=== PATIENT | female | born 1945 | race Caucasian/White ===

== ENCOUNTER 2022-09-19 10:13 | Inpatient (IN) | payer MEDICARE, MEDICAID, SELFPAY ==
[2022-09-19] VITALS (38 sets, daily range): BP systolic 123–164; BP diastolic 72–95; PULSE 78–116; RESP 16–27; TEMP 36.3–36.5; O2SAT 88–100
--- NOTE | 2022-09-19 10:00 | DI.RAD_ITS ---
Exam(s) XR PORTABLE CHEST AP EXAM: XR PORTABLE CHEST AP CLINICAL HISTORY: Hypoxia, cough TECHNIQUE: 2D digital imaging was performed. COMPARISON: No exams were available for comparison FINDINGS: The exam is extremely limited limited by under penetration and patient body habitus with overlying ab dominal soft tissues. LUNGS: Increased densities seen left hemithorax. Effusion and/or infiltrates suspected. Right lung grossly clear. HEART: Cardiac silhouette obscured by pulmonary densities. AORTA: Normal diameter. BONES: Unremarkable for age. Soft tissues: Unremarkable. IMPRESSION: Limited exam. Left-sided pulmonary opacities could represent pneumonia and/or effusion. Recommend f ollow-up PA and lateral views. DATA REPOSITORY: RADIATION DOSE DELIVERED:
--- NOTE | 2022-09-19 10:15 | RT.EKG_ITS ---
APPROVED REPORT Exam: Resting ECG Reason for Exam: Shortness of breath Patient Location: E HR:92 bpm ECG Measurements Heart Rate 92 AXIS CO 196 P 57 QRSd 90 QRS 1 QT 352 T 3 QTc 436 Conclusion Sinus Rhythm No st elevation
--- NOTE | 2022-09-19 10:25 | W.ED.GENAD ---
Discharge Plan Disposition Patient Disposition: Admit to [facility] Discharge Details Clinical Impression: Pleural effusion, CHF (congestive heart failure), Hypoxia, Pneumonia Admit Date/Time: 09/19/22 13:04 Admit Provider: Donn Barboza Attending Provider: Donn Barboza Primary Care Provider: Unknown,Unknown ED Provider: Maykel Holland Medical Decision Making Patient presenting to the emergency department via EMS for chief complaint of worsening cough and shortness of breath. Patient states on Tuesday she started developing worsening cold symptoms and some shortness of breath. Patient denies any feelings of being feverish and does state multiple people have been ill at her care facility. Patient denies any nasal congestion, sore throat, headache or body aches, denies chest pain just states cough malaise and shortness of breath. Physical exam shows wheezes in the left lung field and rhonchorous breath sounds in the right with decreased lung sounds throughout. HEENT exam cardiac exam and exam otherwise unremarkable. There was a reported low O2 [facility] which was verified here off oxygen patient is around 88% on room air. Patient on 2 L nasal cannula which appropriately brings her oxygen into the mid 90s. We will continue to monitor. Patient is ED afebrile, not hypotensive, not tachypneic or tachycardic at this time. We will plan on performing chest x-ray, labs, blood cultures and EKG. I am concerned about acute pneumonia given worsening cough along with breath sounds that are more focal on the right. Once blood cultures are drawn we will plan on starting antibiotics pending results. Patient is stable at this time with no signs of severe respiratory distress or failure but will continue to monitor. Reviewed CBC which is nondiagnostic shows no severe anemia thrombocytopenia or leukocytosis with shift, CMP does show slightly elevated carbon dioxide, glucose of 140 negative troponin and BNP slightly elevated at 958. Patient is negative for COVID influenza and RSV. Review of chest x-ray shows significant pleural effusion and opacity of the left lung which I feel is why diminished lung sounds are heard. Given patient has history of CHF and cardiomyopathy along with opacity we will treat patient for both pneumonia and diuresis for pulmonary effusion. Given that patient has been on Keflex for urinary tract infection recently will start patient on Levaquin and will give 40 mg Lasix. We will also plan on contacting hospitalist for admission given hypoxia pneumonia and pleural effusion. Given pleural effusion did consider thoracentesis but at this time I feel that patient has higher probability of this being related to her cardiomyopathy and CHF so we will start with diuresis. Discussed case with hospitalist who is in agreement to admit patient and had no further questions or recommendations after our initial discussion. Imaging Data Radiologic Study: Attestation: I personally reviewed and interpreted this imaging study as follows: Imaging: X-Ray Radiologist's impression: Exam(s) PROCEDURE INFORMATION: Exam: XR Chest Exam date and time: 09/19/2022 10:10 AM Age: 76 years old Clinical indication: Other: Hypoxia, cough TECHNIQUE: Imaging protocol: Radiologic exam of the chest. Views: 1 view. COMPARISON: No relevant prior studies available. FINDINGS: Lungs: There is opacity in the left lung base. Right lung is grossly clear. Pleural spaces: Unremarkable. No pleural effusion. No pneumothorax. Heart/Mediastinum: The mediastinum is obscured from view secondary to overlying opacity and positioning. Bones/joints: No acute bony abnormalities. Other findings: Limited examination secondary to patient positioning. IMPRESSION: Left lung base opacity. This may represent consolidation such as pneumonia or atelectasis. A left-sided pleural effusion is also a possibility. Recommend dedicated upright PA and lateral chest radiographs if clinically feasible to further characterize. Lab Data Lab results reviewed: Yes I reviewed the patient's lab results. HPI General Mode of arrival: EMS. Date/Time Provider Initiated Documentation: 09/19/22 10:14. Limitations to Documentation: no limitations. Information obtained by: patient, RN notes reviewed and old records reviewed. History of Present Illness 76 year old F presents to the emergency department with the chief complaint of Worsening cough and shortness of breath, described as moderate, Patient started experiencing this day(s) (3) and it has been constant. No relieving factors improve symptom(s), No exacerbating factors reported . Patient notes cough and shortness of breath; denies chest pain and fever/chills. Related Data Home Medications Medication Instructions Recorded Confirmed acetaminophen 650 mg tablet 650 PO Q6H PRN PRN 09/19/22 aspirin 81 mg chewable tablet 81 mg PO DAILY 09/19/22 09/19/22 calcium carbonate 500 mg oral wafer 500 mg PO Q4-5H PRN 09/19/22 09/19/22 carboxymethylcellulose sodium 1 drp ophthalmic (eye) BID PRN 09/19/22 09/19/22 carvedilol 12.5 mg tablet 12.5 mg PO BID 09/19/22 09/19/22 cyclobenzaprine 5 mg tablet 5 mg PO Q8H PRN PRN Muscle Spasm 09/19/22 09/19/22 enoxaparin 40 mg/0.4 mL 40 mg subcut DAILY 09/19/22 09/19/22 subcutaneous syringe fentanyl 12 mcg/hr transdermal 12 mcg topical Q OTHER DAY 09/19/22 09/19/22 patch furosemide 20 mg tablet 20 mg PO DAILY 09/19/22 09/19/22 ipratropium 0.5 mg-albuterol 3 mg 3 ml inhalation QID PRN 09/19/22 09/19/22 (2.5 mg base)/3 mL nebulization soln irbesartan 150 mg tablet 150 mg PO DAILY 09/19/22 09/19/22 lidocaine 5 % topical patch 1 patch topical DAILY 09/19/22 09/19/22 magnesium hydroxide 400 mg/5 mL 30 ml PO DAILY PRN Constipation 09/19/22 09/19/22 oral suspension meclizine 12.5 mg tablet 12.5 mg PO TID PRN 09/19/22 09/19/22 polyethylene glycol 3350 17 17 g PO DAILY PRN PRN 09/19/22 09/19/22 gram/dose oral powder (Miralax) ramelteon 8 mg tablet 8 mg PO QHS PRN 09/19/22 09/19/22 triamcinolone acetonide 0.1 % 1 applic topical BID PRN 09/19/22 09/19/22 topical cream Allergies Allergy/AdvReac Type Severity Reaction Status Date / Time atorvastatin [From Lipitor] Allergy Unverified 09/19/22 13:43 Penicillins Allergy Unverified 09/19/22 13:43 sean hips Allergy Unverified 09/19/22 13:43 gabapentin [From Neurontin] AdvReac Unverified 09/19/22 13:43 ibuprofen AdvReac Unverified 09/19/22 13:43 lovastatin AdvReac Unverified 09/19/22 13:43 metoclopramide [From Reglan] AdvReac Unverified 09/19/22 13:43 General Stated Complaint: SOB IFEANYI: 3 Review of Systems Constitutional Constitutional: Denies chills, Denies fever(s), Reports lethargy, Reports malaise and Reports poor appetite ENT Ears, Nose, Mouth, and Throat: Denies nasal congestion, Denies nasal discharge, Denies odynophagia and Denies sore throat Cardiovascular Cardiovascular: Denies chest pain, Reports dyspnea and Reports dyspnea on exertion Respiratory Respiratory: Reports chest congestion, Reports cough, Reports dyspnea and Reports dyspnea on exertion Gastrointestinal Gastrointestinal: Denies nausea, Denies odynophagia and Denies vomiting Integumentary/Breasts Skin/Breast: Denies rash PFSH All Active Problems (Updated 09/19/22 @ 13:39 by Maykel Holland NP) Pleural effusion (Acute) Hypoxia (Acute) Pneumonia (Acute) Chronic venous hypertension (Acute) Coronary artery disease without angina pectoris (Acute) Hyperlipidemia (Acute) First degree AV block (Acute) GERD (gastroesophageal reflux disease) (Chronic) Cardiomyopathy (Acute) Chronic pain (Chronic) Muscular dystrophy (Acute) Hypertension (Chronic) CHF (congestive heart failure) (Chronic) Social History Smoking/Tobacco Use Status: Never Smoking risk assessment performed?: Yes Alcohol Intake: former Drug use: Never Substance use type: does not use Do you feel safe at home: Yes Do you feel safe in your relationship?: Yes Exam Const General: cooperative and comfortable Orientation: alert and awake [facility] Head: normal to inspection, normocephalic and atraumatic Ears: hearing grossly normal bilaterally and TM's normal bilaterally General nose exam: external nose normal Face and sinus: no erythema Mouth: oral mucosae normal, no drooling, no muffled voice and no trismus Throat: posterior oropharynx normal Neck Neck: normal visual inspection, full ROM, no lymphadenopathy, no meningeal signs, trachea midline and supple Resp Effort & Inspection: normal respiratory effort and able to speak in complete sentences Auscultation: diminished lung sounds on the left throughout, rhonchi right upper and right lower and wheezes expiratory wheezes, left lower and left upper Cardio Rate: regular rate Rhythm: regular rhythm Heart Sounds: S1 normal, S2 normal, normal S1 and S2, no click, no gallops, no murmurs and no rubs Skin General skin exam: no rashes or lesions noted and dry skin (warm) Neuro General: patient alert, patient awake, patient oriented x3, gait normal and moves all extremities Cognition: normal cognition Speech: speech normal Course Vital Signs Vital signs: Vital Signs Temperature 36.5 C 09/19/22 10:13 Pulse 97 H 09/19/22 10:13 Respiratory Rate 20 09/19/22 10:13 Blood Pressure 150/88 H 09/19/22 10:13 Pulse Oximetry 99 09/19/22 10:13 Temperature 36.5 C 09/19/22 10:13 Temperature Source Oral 09/19/22 10:13 Pulse 97 H 09/19/22 10:13 Respiratory Rate 20 09/19/22 10:13 Blood Pressure 150/88 H 09/19/22 10:13 Blood Pressure Position Sitting 09/19/22 10:13 Pulse Oximetry 99 09/19/22 10:13 Oxygen Delivery Method Nasal Cannula 09/19/22 10:13 Oxygen Flow Rate 6 09/19/22 10:13 Lab/Test Results Lab/Test Results: 09/19/22 10:14 Blood Blood Culture - Pending 09/19/22 10:14 Blood Blood Culture - Pending
--- NOTE | 2022-09-19 10:50 | DI.VRAD_ITS ---
PROCEDURE INFORMATION: Exam: XR Chest Exam date and time: 09/19/2022 10:10 AM Age: 76 years old Clinical indication: Other: Hypoxia, cough TECHNIQUE: Imaging protocol: Radiologic exam of the chest. Views: 1 view. COMPARISON: No relevant prior studies available. FINDINGS: Lungs: There is opacity in the left lung base. Right lung is grossly clear. Pleural spaces: Unremarkable. No pleural effusion. No pneumothorax. Heart/Mediastinum: The mediastinum is obscured from view secondary to overlying opacity and positioning. Bones/joints: No acute bony abnormalities. Other findings: Limited examination secondary to patient positioning. IMPRESSION: Left lung base opacity. This may represent consolidation such as pneumonia or atelectasis. A left-sided pleural effusion is also a possibility. Recommend dedicated upright PA and lateral chest radiographs if clinically feasible to further characterize. Dictated and Authenticated by: Maykel Becker MD. Ordering:ERMELINDA Brar MD
[2022-09-19 11:00] LABS: Lactate 0.9 mmol/L (0.6-1.4)
[2022-09-19 11:02] LABS: Abs Immature Grans 0.04 10^3/uL (0.0-0.06); Absolute Basophil Count 0.05 10^3/uL (0.0-0.2); Absolute Eosinophil Count 0.03 10^3/uL (0.0-0.7); Absolute Lymphocyte Count 1.23 10^3/uL (1.2-3.4); Absolute Monocyte Count 1.27 10^3/uL (0.1-0.8); Absolute Neutrophil Count 4.95 10^3/uL (1.2-6.7); Basophils % 0.7; Eosinophils % 0.4; HCT 43.9 % (36.0-46.0); Immature Grans % 0.5; Lymphocytes % 16.2; MCH 31.3 pg (27.0-33.0); MCHC 31.9 % (32.0-36.0); MCV 98 fL (80-95); MPV 9.9 fL (8.0-11.0); Monocytes % 16.8; Neutrophils % 65.4; Platelet Count 291 10^3/uL (130-400); RBC 4.48 10^6/uL (3.93-5.22); RDW 13.4 % (11.7-14.6); RDW-SD 48.6 fL; WBC 7.57 10^3/uL (4.4-10.8)
[2022-09-19] MEDS: Albuterol/Ipratropium 3 ML UPD VIAL UPD (11:18)
[2022-09-19 11:22] LABS: ALT 21 U/L (14-59); AST 16 U/L (15-37); Albumin 2.8 g/dL (3.4-5.0); Alkaline Phosphatase 106 U/L (46-116); Anion Gap 5.7 mmol/L (3-11); BUN 12 mg/dL (7-18); Bilirubin, Total 0.8 mg/dL (0.2-1.0); CO2 33.3 mmol/L (21.0-32.0); CREATININE 0.5 mg/dL (0.55-1.02); Calcium 8.7 mg/dL (8.5-10.1); Chloride 97 mmol/L (98-107); Estimated GFR 96.54 (mL/min/1.73m2); Glucose 140 mg/dL (74-106); Potassium 3.7 mmol/L (3.5-5.1); Sodium 136 mmol/L (136-145); Total Protein 7.2 g/dL (6.4-8.2); Troponin I < 50 ng/L (<or=60)
[2022-09-19 11:41] LABS: COVID-19 PCR Negative (Negative); Influenza A PCR Negative (Negative); Influenza B PCR Negative (Negative); RSV PCR Negative (Negative)
[2022-09-19 11:45] LABS: Source Nasopharynx
[2022-09-19 12:02] LABS: NT-proBNP 958 pg/mL (<300)
[2022-09-19] MEDS: levoFLOXacin 750 MG/150 ML BAG 100 MG IVPB (12:22)
[2022-09-19] MEDS: Furosemide 40 MG/4 ML VIAL IVP (12:22)
--- NOTE | 2022-09-19 15:43 | W.PM.HP.N ---
Date of service: 09/19/22 Time of Service: 15:44 Assessment and Plan Assessment and plan (1) Pleural effusion: Status: Acute Assessment and plan: Pulmonary consult; oxygen; consider CHF; abx; furosemide Left sided white out (2) Hypoxia: Status: Acute Assessment and plan: Oxygen, treat pneumonia v CHF antibiotics and furosemide (3) Pneumonia: Status: Acute Assessment and plan: Antibiotics IV, BC pending, Acapella, IS Pulmonology consult (4) First degree AV block: Status: Chronic Assessment and plan: Chronic, stable - on telemetry (5) Cardiomyopathy: Status: Acute Assessment and plan: Echo, telemetry, monitor for CHF (6) Muscular dystrophy: Status: Chronic Assessment and plan: Continue current treatment Fentanyl patch 12 mcg every 48h Cyclobenzaprine 5 mg q8h prn (7) Hypertension: Status: Chronic Assessment and plan: Continue carvedilol and irbesartan (8) CHF (congestive heart failure): Status: Chronic Assessment and plan: Chronic - home dose of furosemide 20 mg daily; increase to 40 mg and monitor output, lung sounds, edema - titrate as necessary (9) DVT prophylaxis: Status: Acute Assessment and plan: Enoxaparin 40 mg sc q24h (10) Discharge planning issues: Status: Acute Assessment and plan: Return to [facility] when stable History of Present Illness History of Present Illness Chief Complaint: Shortness of breath Narrative: This is a 76 year old female patient who presented to the [facility] emergency department, [facility] [place] [facility], via [place] for chief complaint of worsening cough and shortness of breath.? Patient stated on Tuesday09/17/22, she started developing worsening cold symptoms and some shortness of breath.? Patient denied any feelings of being feverish, there have been multiple people ill at her care facility.? Patient denied any nasal congestion, sore throat, headache or body aches, denied chest pain, only complaint was cough, malaise and shortness of breath.?There was a reported low O2 at [facility] which was verified here off oxygen patient was around 88% on room air.? Patient on 2 L nasal cannula which appropriately brought her oxygen into the mid 90s.?In ED afebrile, not hypotensive, not tachypneic or tachycardic .?CBC in ED was nondiagnostic showed no severe anemia thrombocytopenia or leukocytosis with shift, CMP slightly elevated carbon dioxide, glucose of 140 negative troponin and BNP slightly elevated at 958.? Patient is negative for COVID influenza and RSV.? Review of chest x-ray showed significant pleural effusion and opacity of the left lung which I feel is why diminished lung sounds are heard.? Given patient has history of CHF and cardiomyopathy along with opacity we will treat patient for both pneumonia and diuresis for pulmonary effusion.? Given that patient has been on Keflex for urinary tract infection recently Levaquin was started and 40 mg Lasix IV was given.? Given pleural effusion did consider thoracentesis but at this time patient has higher probability of this being related to her cardiomyopathy and CHF so we will start with diuresis. Patient was admitted to the medical floor for IV antibiotics and diuresis. Discussed with Dr Barboza Review of Systems All systems reviewed & are unremarkable except as noted in HPI and below PFSH All Active Problems (Updated 09/19/22 @ 20:54 by Kelsey Barron NP) DVT prophylaxis (Acute) Discharge planning issues (Acute) Pleural effusion (Acute) Hypoxia (Acute) Pneumonia (Acute) Chronic venous hypertension (Acute) Coronary artery disease without angina pectoris (Acute) Hyperlipidemia (Acute) First degree AV block (Chronic) GERD (gastroesophageal reflux disease) (Chronic) Cardiomyopathy (Acute) Chronic pain (Chronic) Muscular dystrophy (Chronic) Hypertension (Chronic) CHF (congestive heart failure) (Chronic) Social History Smoking/Tobacco Use Status: Never Smoking risk assessment performed?: Yes Alcohol Intake: former Drug use: Never Substance use type: does not use Do you feel safe at home: Yes Do you feel safe in your relationship?: Yes Meds Allergies and Home Medications Allergies Allergy/AdvReac Type Severity Reaction Status Date / Time atorvastatin [From Lipitor] Allergy Unverified 09/19/22 13:43 Penicillins Allergy Unverified 09/19/22 13:43 sean hips Allergy Unverified 09/19/22 13:43 gabapentin [From Neurontin] AdvReac Unverified 09/19/22 13:43 ibuprofen AdvReac Unverified 09/19/22 13:43 lovastatin AdvReac Unverified 09/19/22 13:43 metoclopramide [From Reglan] AdvReac Unverified 09/19/22 13:43 Home Medications Medication Instructions Recorded Confirmed Type acetaminophen 650 mg tablet 650 PO Q6H PRN PRN 09/19/22 History aspirin 81 mg chewable tablet 81 mg PO DAILY 09/19/22 09/19/22 History calcium carbonate 500 mg oral wafer 500 mg PO Q4-5H PRN 09/19/22 09/19/22 History carboxymethylcellulose sodium 1 drp ophthalmic (eye) BID PRN 09/19/22 09/19/22 History carvedilol 12.5 mg tablet 12.5 mg PO BID 09/19/22 09/19/22 History cyclobenzaprine 5 mg tablet 5 mg PO Q8H PRN PRN Muscle Spasm 09/19/22 09/19/22 History enoxaparin 40 mg/0.4 mL 40 mg subcut DAILY 09/19/22 09/19/22 History subcutaneous syringe fentanyl 12 mcg/hr transdermal 12 mcg topical Q OTHER DAY 09/19/22 09/19/22 History patch furosemide 20 mg tablet 20 mg PO DAILY 09/19/22 09/19/22 History ipratropium 0.5 mg-albuterol 3 mg 3 ml inhalation QID PRN 09/19/22 09/19/22 History (2.5 mg base)/3 mL nebulization soln irbesartan 150 mg tablet 150 mg PO DAILY 09/19/22 09/19/22 History lidocaine 5 % topical patch 1 patch topical DAILY 09/19/22 09/19/22 History magnesium hydroxide 400 mg/5 mL 30 ml PO DAILY PRN Constipation 09/19/22 09/19/22 History oral suspension meclizine 12.5 mg tablet 12.5 mg PO TID PRN 09/19/22 09/19/22 History polyethylene glycol 3350 17 17 g PO DAILY PRN PRN 09/19/22 09/19/22 History gram/dose oral powder (Miralax) ramelteon 8 mg tablet 8 mg PO QHS PRN 09/19/22 09/19/22 History triamcinolone acetonide 0.1 % 1 applic topical BID PRN 09/19/22 09/19/22 History topical cream Exam Const General: cooperative and comfortable Orientation: alert and awake [facility] Head: normal to inspection, normocephalic and atraumatic Ears: hearing grossly normal bilaterally and TM's normal bilaterally General nose exam: external nose normal Face and sinus: no erythema Mouth: oral mucosae normal, no drooling, no muffled voice and no trismus Throat: posterior oropharynx normal Neck Neck: normal visual inspection, full ROM, no lymphadenopathy, no meningeal signs, trachea midline and supple Resp Effort & Inspection: normal respiratory effort and able to speak in complete sentences Auscultation: diminished lung sounds on the left throughout, rhonchi right upper and right lower and wheezes expiratory wheezes, left lower and left upper Cardio Rate: regular rate Rhythm: regular rhythm Heart Sounds: S1 normal, S2 normal, normal S1 and S2, no click, no gallops, no murmurs and no rubs Skin General skin exam: no rashes or lesions noted and dry skin (warm) Neuro General: patient alert, patient awake, patient oriented x3, gait normal and moves all extremities Cognition: normal cognition Speech: speech normal Results Labs 09/19/22 10:50 09/19/22 10:50 Labs: Laboratory Results - last 24 hr 09/19/22 09/19/22 09/19/22 10:50 10:50 10:50 WBC 7.57 RBC 4.48 Hgb 14.0 Hct 43.9 MCV 98 H MCH 31.3 MCHC 31.9 L RDW 13.4 Plt Count 291 MPV 9.9 Immature Gran % 0.5 Neutrophils % 65.4 Lymphocytes % 16.2 Monocytes % 16.8 Eosinophils % 0.4 Basophils % 0.7 Nucleated RBC % 0.0 Absolute Neutrophils 4.95 Absolute Lymphocytes 1.23 Absolute Monocytes 1.27 H Absolute Eosinophils 0.03 Absolute Basophils 0.05 VBG Lactate 0.9 Sodium 136 Potassium 3.7 Chloride 97 L Carbon Dioxide 33.3 H Anion Gap 5.7 BUN 12 Creatinine 0.5 L Est GFR (CKD-EPI 2020) 96.54 Glucose 140 H Calcium 8.7 Total Bilirubin 0.8 AST 16 ALT 21 Alkaline Phosphatase 106 Troponin I < 50 NT-Pro-B Natriuret Pep Total Protein 7.2 Albumin 2.8 L COVID-19 Source SARS-CoV-2 (PCR) Influenza Type A (PCR) Influenza Type B (PCR) RSV (PCR) 09/19/22 09/19/22 09/19/22 10:50 10:50 10:55 WBC RBC Hgb Hct MCV MCH MCHC RDW Plt Count MPV Immature Gran % Neutrophils % Lymphocytes % Monocytes % Eosinophils % Basophils % Nucleated RBC % Absolute Neutrophils Absolute Lymphocytes Absolute Monocytes Absolute Eosinophils Absolute Basophils VBG Lactate Sodium Potassium Chloride Carbon Dioxide Anion Gap BUN Creatinine Est GFR (CKD-EPI 2020) Glucose Calcium Total Bilirubin AST ALT Alkaline Phosphatase Troponin I Cancelled NT-Pro-B Natriuret Pep 958 H Total Protein Albumin COVID-19 Source Nasopharynx SARS-CoV-2 (PCR) Negative Influenza Type A (PCR) Negative Influenza Type B (PCR) Negative RSV (PCR) Negative Last Vital Signs Temp 36.3 C L 09/19/22 14:28 Pulse 97 H 09/19/22 14:28 Resp 18 09/19/22 14:28 BP 150/81 H 09/19/22 14:28 Pulse Ox 95 09/19/22 14:28 Time Spent Time spent with Patient: 40-54 minutes Time was spent: preparing to see the patient(eg.review tests), obtaining and/or reviewing separately otained hiistory, ordering medications,tests, procedures, referring, communicating with other health primary care coordinator, indepentently interpreting results, counseling the patient and care coordination
[2022-09-19] MEDS: fentaNYL 12 MCG PATCH TD (17:12)
[2022-09-19] MEDS: Normal Saline Flush 10 ML SYR IVP (20:58)
[2022-09-19] MEDS: Refresh PLUS Eye Drops 0.4ml 1 EACH OP (20:59)
[2022-09-19] MEDS: Carvedilol 12.5 MG TAB PO (20:59)
[2022-09-20] VITALS (20 sets, daily range): BP systolic 120–144; BP diastolic 68–88; PULSE 58–83; RESP 4–24; TEMP 35.9–37; O2SAT 76–98
--- NOTE | 2022-09-20 | DI.RAD_ITS ---
Exam(s) XR CHEST 2V PA LATERAL EXAM: XR CHEST 2V PA LATERAL CLINICAL HISTORY: LLL pneumonia TECHNIQUE: 2D digital imaging was performed. COMPARISON: CR,XR XR PORTABLE CHEST AP from 09/19/2022 FINDINGS: Exam is limited by patient body habitus. HEART: Grossly enlarged. Aorta: Not dilated. PULMONARY VASCULATURE: Normal. LUNGS: Consolidation left lower lobe. Mildly increased densities right lower lobe could represent at electasis. PLEURAL SPACE: No pneumothorax. Are question tiny bilateral pleural effusions. BONE:Unremarkable for age. IMPRESSION: Limited exam. Left lower lobe consolidation. DATA REPOSITORY: RADIATION DOSE DELIVERED:
--- NOTE | 2022-09-20 07:07 | PUCON_ITS ---
General Date Of Service Date of service: 09/20/22 Time of Service: 07:07 Reason for Consult: Pleural effusion Assessment and Plan Assessment and plan (1) CHF (congestive heart failure): Status: Chronic (2) Pneumonia: Status: Acute (3) Hypoxia: Status: Acute Assessment and plan: This is a 76 yo admitted for dyspnea and hypoxia. I suspect her symptoms are related to CHF. There is no pleural effusion present and based on my POCUS, I suspect her to have atelectasis, however I cannot comfortably rule out pneumonia. She likely does not need as broad of an antibiotic of Levaquin, and would do fine with just a Z-pack or doxycycline. I think she would benefit from diuresis and agree with getting a formal echo. She is already ordered for Acapella and IS, which would help with any atelectasis. To further assess the LLL, you could consider a CXR PA and Lateral. Dyspnea - likely related to volume overload - left pleural effusion on POCUS - agree with echo today Possible pnuemonia - consider stewardship of antibiotics to a Z-pack or doxycycline - consider CXR PA/Lat to better assess LLL Atelectasis - agree with IS and Acapella History of Present Illness Narrative: This is a 76 yo admitted for dyspnea and cough. She states that on Joe her symptoms started developing. She does endorse a productive cough but states it was clear and frothy - not phlegm like. She does not think she has been diagnosed with heart issues in the past. On a CXR in the ED. there is a pulmonary edema pattern and her left hemidiaphragm is obstructed with a concern for a possible infiltrate and/or pleural effusion. He bnp is elevated and she has noticed progressive swelling on her legs. She still feels short of breath and still has a bit of a cough, although he cough is very weak. She is tired. Review of Systems All systems reviewed & are unremarkable except as noted in HPI and below PFSH All Active Problems (Updated 09/20/22 @ 10:44 by Nancy Lala MD) DVT prophylaxis (Acute) Discharge planning issues (Acute) Hypoxia (Acute) Pneumonia (Acute) Chronic venous hypertension (Acute) Coronary artery disease without angina pectoris (Acute) Hyperlipidemia (Acute) First degree AV block (Chronic) GERD (gastroesophageal reflux disease) (Chronic) Cardiomyopathy (Acute) Chronic pain (Chronic) Muscular dystrophy (Chronic) Hypertension (Chronic) CHF (congestive heart failure) (Chronic) Social History Smoking/Tobacco Use Status: Never Smoking risk assessment performed?: Yes Alcohol Intake: former Drug use: Never Substance use type: does not use Do you feel safe at home: Yes Do you feel safe in your relationship?: Yes Visit Medication and Allergies Active Medications Generic Name Dose Route Start Last Admin Trade Name Freq PRN Reason Stop Dose Admin Acetaminophen 650 mg 09/20/22 03:57 Acetaminophen 325 Mg Tab PO Q6H PRN PRN Albuterol/Ipratropium 3 ml 09/19/22 16:16 Albuterol/Ipratropium 3 Ml Upd Vial IH QID PRN PRN Aspirin 81 mg 09/20/22 08:30 Aspirin 81 Mg Chew PO DAILY LINDSAY Calcium Carbonate 500 mg 09/19/22 14:33 Calcium Carbonate *Tums* 500 Mg Chew PO Q4H PRN PRN Carboxymethylcellulose Sodium 1 each 09/19/22 20:00 09/19/22 20:59 Refresh Plus Eye Drops 0.4ml OP 1 drp BID LINDSAY Administration Carvedilol 12.5 mg 09/19/22 20:00 09/19/22 20:59 Carvedilol 12.5 Mg Tab PO 12.5 mg BID LINDSAY Administration Cyclobenzaprine HCl 5 mg 09/19/22 15:07 Cyclobenzaprine 10 Mg Tab PO Q8H PRN PRN Muscle Spasm Dimethicone/Zinc Oxide 0 gm 09/19/22 13:04 Eveline Protect Cream 142 Gm Tube TP PRN PRN Enoxaparin Sodium 40 mg 09/20/22 08:30 Enoxaparin 40 Mg/0.4 Ml Syr SC DAILY [facility] Fentanyl 12 mcg 09/19/22 17:00 09/19/22 17:12 Fentanyl 12 Mcg Patch TD 12 mcg Q48H LINDSAY Administration Furosemide 40 mg 09/20/22 08:30 Furosemide 20 Mg Tab PO DAILY [facility] Levofloxacin 750 mg in 150 mls @ 100 mls/hr 09/20/22 12:00 Levaquin Premixed Bag IVPB Q24H [facility] Protocol IV Miscellaneous Supplies 1 each 09/19/22 10:15 Iv Access IV DIRECTED [facility] Irbesartan 150 mg 09/20/22 08:30 Irbesartan 75 Mg Tab PO DAILY [facility] Lidocaine 1 patch 09/20/22 08:30 Lidocaine 5% Patch TP DAILY [facility] Magnesium Hydroxide 30 ml 09/19/22 16:16 Milk Of Magnesia 30 Ml Cup PO DAILY PRN PRN Constipation Meclizine HCl 12.5 mg 09/19/22 16:16 Meclizine 12.5 Mg Tab PO TID PRN PRN Non-Formulary Medication 8 mg 09/19/22 16:16 Ramelteon PO QHS PRN Polyethylene Glycol 17 gm 09/19/22 16:28 Polyethylene Glycol 3350 17 Gm Packet PO DAILY PRN PRN Sodium Chloride 0 ml 09/19/22 10:14 09/19/22 20:58 Normal Saline Flush 10 Ml Syr IVP 10 ml PRN PRN Administration Allergies atorvastatin [From Lipitor] Allergy (Unverified 09/19/22 13:43) Penicillins Allergy (Unverified 09/19/22 13:43) sean hips Allergy (Unverified 09/19/22 13:43) gabapentin [From Neurontin] Adverse Reaction (Unverified 09/19/22 13:43) ibuprofen Adverse Reaction (Unverified 09/19/22 13:43) lovastatin Adverse Reaction (Unverified 09/19/22 13:43) metoclopramide [From Reglan] Adverse Reaction (Unverified 09/19/22 13:43) Exam Narrative Exam Narrative: POCUS 09/20/22: All views obtained, but suboptimal. No pleural effusion on the left. B-lines present. Likely LLL atelectasis. No clear hepatization. LVEF likely normal. IVC is 2.5cm and non collapsable with inspiration or cough. Gen: NAD, normal respiratory effort, obese HENT: PERRL Chest: No respiratory distress, normal appearance of chest, clear to auscultation bilaterally, no crackles or wheezes, normal inspiratory effort Heart: regular rate and rhythym, no murmurs, rubs or gallops Abdomen: Non-distended, soft, non tender Extremities: No clubbing, 3+ edema of legs, no cyanosis, no rashes Neuro: AAOx3 , non focal Psych: cooperative, appropriate mental affect Results Last Vital Signs Temp 36.6 C 09/20/22 06:26 Pulse 81 09/20/22 06:26 Resp 18 09/20/22 06:26 BP 121/74 09/20/22 06:26 Pulse Ox 96 09/20/22 06:26 Labs 09/19/22 10:50 09/19/22 10:50 Labs: Laboratory Results - last 24 hr 09/19/22 09/19/22 09/19/22 10:50 10:50 10:50 WBC 7.57 RBC 4.48 Hgb 14.0 Hct 43.9 MCV 98 H MCH 31.3 MCHC 31.9 L RDW 13.4 Plt Count 291 MPV 9.9 Immature Gran % 0.5 Neutrophils % 65.4 Lymphocytes % 16.2 Monocytes % 16.8 Eosinophils % 0.4 Basophils % 0.7 Nucleated RBC % 0.0 Absolute Neutrophils 4.95 Absolute Lymphocytes 1.23 Absolute Monocytes 1.27 H Absolute Eosinophils 0.03 Absolute Basophils 0.05 VBG Lactate 0.9 Sodium 136 Potassium 3.7 Chloride 97 L Carbon Dioxide 33.3 H Anion Gap 5.7 BUN 12 Creatinine 0.5 L Est GFR (CKD-EPI 2020) 96.54 Glucose 140 H Calcium 8.7 Total Bilirubin 0.8 AST 16 ALT 21 Alkaline Phosphatase 106 Troponin I < 50 NT-Pro-B Natriuret Pep Total Protein 7.2 Albumin 2.8 L COVID-19 Source SARS-CoV-2 (PCR) Influenza Type A (PCR) Influenza Type B (PCR) RSV (PCR) 09/19/22 09/19/22 09/19/22 10:50 10:50 10:55 WBC RBC Hgb Hct MCV MCH MCHC RDW Plt Count MPV Immature Gran % Neutrophils % Lymphocytes % Monocytes % Eosinophils % Basophils % Nucleated RBC % Absolute Neutrophils Absolute Lymphocytes Absolute Monocytes Absolute Eosinophils Absolute Basophils VBG Lactate Sodium Potassium Chloride Carbon Dioxide Anion Gap BUN Creatinine Est GFR (CKD-EPI 2020) Glucose Calcium Total Bilirubin AST ALT Alkaline Phosphatase Troponin I Cancelled NT-Pro-B Natriuret Pep 958 H Total Protein Albumin COVID-19 Source Nasopharynx SARS-CoV-2 (PCR) Negative Influenza Type A (PCR) Negative Influenza Type B (PCR) Negative RSV (PCR) Negative
[2022-09-20 07:24] LABS: Abs Immature Grans 0.02 10^3/uL (0.0-0.06); Absolute Basophil Count 0.03 10^3/uL (0.0-0.2); Absolute Eosinophil Count 0.02 10^3/uL (0.0-0.7); Absolute Lymphocyte Count 1.97 10^3/uL (1.2-3.4); Absolute Monocyte Count 1.29 10^3/uL (0.1-0.8); Absolute Neutrophil Count 3.63 10^3/uL (1.2-6.7); Basophils % 0.4; Eosinophils % 0.3; HCT 40.9 % (36.0-46.0); HGB 12.8 g/dL (11.2-15.7); Immature Grans % 0.3; Lymphocytes % 28.3; MCH 30.5 pg (27.0-33.0); MCHC 31.3 % (32.0-36.0); MCV 97 fL (80-95); MPV 10.1 fL (8.0-11.0); Monocytes % 18.5; Neutrophils % 52.2; Platelet Count 285 10^3/uL (130-400); RDW 13.2 % (11.7-14.6); RDW-SD 47.8 fL; WBC 6.96 10^3/uL (4.4-10.8)
[2022-09-20 07:37] LABS: BUN 13 mg/dL (7-18); CREATININE 0.4 mg/dL (0.55-1.02); Chloride 95 mmol/L (98-107); Estimated GFR 101.87 (mL/min/1.73m2); Glucose 85 mg/dL (74-106); Magnesium 1.8 mg/dL (1.8-2.4); Potassium 3.3 mmol/L (3.5-5.1); Sodium 135 mmol/L (136-145)
[2022-09-20 07:41] LABS: Calcium 8.7 mg/dL (8.5-10.1)
--- NOTE | 2022-09-20 08:00 | DI.US_ITS ---
APPROVED REPORT EXAM: Comprehensive 2D, Doppler, and color-flow Echocardiogram Patient Location: In-Patient Room/Bed: 229 Health Care Recruiter: Yadira Crooks RDCS (AE) Indications: Cardiomyopathy, CHF Other Information Study Quality: Poor. Technically limited study due to body habitus, inability to position patient exa m done bedside supine. Conclusion Technically difficult and suboptimal study Left ventricle appears grossly normal in size, wall thickness and systolic function. EF is 55% Left atrium is mildly dilated Right atrium and right ventricle are not well visualized Within the limits of the study, no structural or hemodynamically significant valvular disease is iden tified Wall motion Left Ventricle The left ventricle is normal size. The overall left ventricular systolic function appears normal. The re is normal left ventricular wall thickness. There is normal LV segmental wall motion. LVEF is 55%. Right Ventricle Right ventricle is not well visualized. Right ventricular systolic function could not be assessed. Atria The left atrium size is mildly dilated Right atrium is not well visualized. Aortic Valve The aortic valve is grossly normal in structure. Number of aortic valve leaflets could not be assesse d. There is no aortic valvular stenosis. Mitral Valve The mitral valve is normal in structure. No evidence of mitral valve stenosis. Trace mitral regurgita tion. Tricuspid Valve The tricuspid valve is normal in structure. There is no tricuspid valve stenosis. Unable to assess PA pressure. Trace tricuspid regurgitation. Pulmonic Valve Pulmonic valve is not well visualized. There is no pulmonic valvular stenosis. Trace pulmonic regurg itation. Great Vessels The aortic root is normal in size. The ascending aorta is normal Aortic arch is not well visualized. The IVC collapses <50% with inspiration. Pericardium technically limited subcostal imaging 2D Dimensions IVSD d PLAX 1.13 cm F: 0.6-1.0 LV Vol A2C d MOD 73.4 mL LVPW d PLAX 1.03 cm F: 0.6 - 1.0 LV Vol A4C d MOD 71.5 mL LVID d PLAX 4.72 cm F: 3.8 - 5.2 LA vol/ BSA A4C s A-L 30.4 mL/m2 LVDs 3.05 cm F: 2.2 - 3.5 LA Area A4C s MOD 23.30 cm2 Ao Root d 2.81 cm F: 2.7 - 3.3 LV EF A4C MOD 57.9 % Ao Asc Diam d 3.24 cm F: 2.3 - 3.1 LV EF A2C MOD 55.9 % LV EF Teichholz 64.4 % LV EF Biplane MOD 59.0 % LVEF (Jackson's) 59.00 % F: 54 - 74 SV 45.13 mL LV Volume 55.58 mL F: 46 - 106 SV Index 20.45 mL/m2 LV Volume Index 25.14 mL/m2 F: 29 - 61 LV Vol Biplane MOD 76.5 mL FS 35.10 % LV Diastology MV E' medial 0.075 (>0.07 m/s) E/A Ratio 1.8 LV E/e MED 13.35 (<14) MV E Vmax 1.00 (0.4-1.3 m/s) MV E' lateral 0.070 (>0.1 m/s) MV A Vmax 0.55 (0.4-1.3 m/s) LV E/e LAT 14.30 (<14) MV E/A Ratio 1.82 MV E/E' medial 13.37 MV E/E' lateral 14.30 Aortic Valve LVOT Area 2.95 cm2 AoV Area Vmax 2.53 cm2 LVOT Vmax 1.03 m/s AoV Area/ BSA (Vmax) 1.15 cm2/m2 LVOT Mean Herbie. 0.63 m/s BERENICE Mean Herbie. 2.36 cm2 LVOT Peak Grad 4.2 mmHg BERENICE Mean Herbie. Index 1.07 cm2/m2 LVOT Mean Grad 1.9 mmHg LVOT VTI 0.232 m LVOT Diam s 1.90 cm AoV Vmax 1.20 m/s Velocity Ratio 0.86 AoV Mean Herbie. 0.78 m/s AoV Peak Grad 5.8 mmHg LVOT SV 68.49 mL AoV Mean Grad 2.8 mmHg AoV VTI 0.280 m AoV Area VTI 2.45 cm2 AoV Area/ BSA (VTI) 1.11 cm/m2 Mitral Valve MV DT 153 (160-240 msec) MV PHT 44 msec MV Area PHT 4.95 cm2 MV VTI 0.310 m MV Area VTI 2.21 (4.0-6.0 cm2) Pulmonary Valve PV Vmax 0.69 (0.5-1.5 m/s) RVOT Peak Gr. 1.32 mmHg PV Peak Grad 1.9 mmHg RVOT Mean Gr. 0.75 mmHg PV Mean Grad 0.8 mmHg RVOT VTI 0.144 m PV VTI 0.128 m RVOT Vmax 0.57 m/s
[2022-09-20] MEDS: Normal Saline Flush 10 ML SYR IVP ×2 (08:25→11:08)
[2022-09-20] MEDS: Furosemide 20 MG TAB 40 MG PO (08:26)
[2022-09-20] MEDS: Irbesartan 75 MG TAB 150 MG PO (08:26)
[2022-09-20] MEDS: Aspirin 81 MG CHEW PO (08:26)
[2022-09-20] MEDS: Lidocaine 5% Patch 1 PATCH TP (08:26)
[2022-09-20] MEDS: Enoxaparin 40 MG/0.4 ML SYR SC (08:26)
[2022-09-20] MEDS: Carvedilol 12.5 MG TAB PO ×2 (08:26→19:25)
[2022-09-20] MEDS: Refresh PLUS Eye Drops 0.4ml 1 EACH OP ×2 (08:26→19:25)
[2022-09-20] MEDS: Albuterol 2.5 MG/3 ML INH SOLN VIAL IH (09:20)
[2022-09-20] MEDS: Ipratropium 0.5 MG/2.5 ML UPD VIAL IH (09:21)
[2022-09-20] MEDS: Acetaminophen 325 MG TAB 650 MG PO ×2 (10:12→20:33)
[2022-09-20] MEDS: Cyclobenzaprine 10 MG TAB 5 MG PO (10:12)
[2022-09-20] MEDS: POTASSIUM CHLORIDE 10 MEQ/100 ML BAG 100 MEQ IVPB ×4 (10:13→14:35)
[2022-09-20] MEDS: Furosemide 100 MG/10 ML VIAL 80 MG IVP (11:07)
[2022-09-20] MEDS: levoFLOXacin 750 MG/150 ML BAG 100 MG IVPB (11:57)
--- NOTE | 2022-09-20 17:08 | PDOC.CMIN ---
- If Service Date Differs Date of service: 09/20/22 Time of Service: 17:08 Care Management Initial Assess REASON FOR HOSPITALIZATION:: Pneumonia PAST MEDICAL HISTORY/PAST SURGICAL HISTORY:: DVT prophylaxis (Acute). Discharge planning issues (Acute). Pleural effusion (Acute). Hypoxia (Acute). Pneumonia (Acute). Chronic venous hypertension (Acute). Coronary artery disease without angina pectoris (Acute). Hyperlipidemia (Acute). First degree AV block (Chronic). GERD (gastroesophageal reflux disease) (Chronic). Cardiomyopathy (Acute). Chronic pain (Chronic). Muscular dystrophy (Chronic). Hypertension (Chronic). CHF (congestive heart failure) (Chronic) PREVIOUS FUNCTIONAL STATUS/SOCIAL/FAMILY SUPPORTS:: Resides at [facility] and requires total assistance with ADLs per manager assessment. ADVANCE DIRECTIVES:: None on file. Has patient been provided with info about the portal/API?: No Did the patient sign up for the portal?: No CODE STATUS:: Full Code INSURANCE COVERAGE / FINANCIAL ISSUES:: Medicaid. Medicare CURRENT HOME/COMMUNITY SERVICES/EQUIPMENT:: LTC [facility] PRIMARY CARE PHYSICIAN:: Dr. Garcia POTENTIAL DISCHARGE NEEDS:: Coordinated return to [facility]. PATIENT/FAMILY EDUCATION NEEDS:: Review discharge instructions, discuss Ask Me Three. ANTICIPATED BARRIERS TO DISCHARGE:: None identified. TRANSPORTATION:: EMS or W/C Van PLAN:: Brendon will return to [facility] when ready per MD. Anticipate she will transport via EMS.
[2022-09-20] MEDS: Doxycycline Hyclate 100 MG CAP PO (19:25)
[2022-09-20] MEDS: MORPHine 2 MG/ML SYR IVP (20:32)
[2022-09-21] VITALS (10 sets, daily range): BP systolic 117–143; BP diastolic 72–85; PULSE 64–79; RESP 16–20; TEMP 35.7–36.7; O2SAT 92–98
[2022-09-21 06:48] LABS: Abs Immature Grans 0.01 10^3/uL (0.0-0.06); Absolute Basophil Count 0.03 10^3/uL (0.0-0.2); Absolute Eosinophil Count 0.02 10^3/uL (0.0-0.7); Absolute Lymphocyte Count 1.78 10^3/uL (1.2-3.4); Absolute Neutrophil Count 2.55 10^3/uL (1.2-6.7); Basophils % 0.6; Eosinophils % 0.4; HCT 42.9 % (36.0-46.0); HGB 13.8 g/dL (11.2-15.7); Immature Grans % 0.2; MCH 31.2 pg (27.0-33.0); MCHC 32.2 % (32.0-36.0); MCV 97 fL (80-95); MPV 10.4 fL (8.0-11.0); Monocytes % 18.6; Neutrophils % 47.2; Platelet Count 273 10^3/uL (130-400); RBC 4.43 10^6/uL (3.93-5.22); RDW 13.2 % (11.7-14.6); RDW-SD 47.1 fL; WBC 5.39 10^3/uL (4.4-10.8)
[2022-09-21 07:03] LABS: Anion Gap 9.1 mmol/L (3-11); BUN 14 mg/dL (7-18); C-Reactive Protein 7.59 mg/dL (0.0-0.3); CO2 34.9 mmol/L (21.0-32.0); CREATININE 0.4 mg/dL (0.55-1.02); Calcium 8.6 mg/dL (8.5-10.1); Chloride 94 mmol/L (98-107); Estimated GFR 101.87 (mL/min/1.73m2); Glucose 94 mg/dL (74-106); Magnesium 1.6 mg/dL (1.8-2.4); Potassium 3.4 mmol/L (3.5-5.1); Sodium 138 mmol/L (136-145)
[2022-09-21] MEDS: Acetaminophen 325 MG TAB 650 MG PO ×2 (08:40→17:05)
[2022-09-21] MEDS: Irbesartan 75 MG TAB 150 MG PO (08:41)
[2022-09-21] MEDS: Cyclobenzaprine 10 MG TAB 5 MG PO ×2 (08:42→23:32)
[2022-09-21] MEDS: Aspirin 81 MG CHEW PO (08:42)
[2022-09-21] MEDS: Carvedilol 12.5 MG TAB PO ×2 (08:43→20:52)
[2022-09-21] MEDS: Refresh PLUS Eye Drops 0.4ml 1 EACH OP ×2 (08:43→20:52)
[2022-09-21] MEDS: Doxycycline Hyclate 100 MG CAP PO ×2 (08:43→20:52)
[2022-09-21] MEDS: Enoxaparin 40 MG/0.4 ML SYR SC (08:44)
[2022-09-21] MEDS: Lidocaine 5% Patch 1 PATCH TP (08:44)
[2022-09-21] MEDS: Normal Saline Flush 10 ML SYR IVP (08:45)
--- NOTE | 2022-09-21 09:19 | CMPROGNOTE_ITS ---
- If Service Date Differs Date of service: 09/21/22 Time of Service: 09:19 Care Management Progress Note S/O: Brendon continues to be treated for pneumonia (on ABX), CHF is encouraged to utilize Acapella and IS. She is comfortable and cooperative at this time. Awaiting speech consult when available. CM continues to follow. A: 76 year old female admitted to [facility] 09/19/22 for Pneumonia P: Brendon will return to [facility] when ready per MD. Anticipate she will transport via EMS.
--- NOTE | 2022-09-21 12:38 | NUR.NOTE ---
Nursing Note: attempted to call kvng arthur for pt update. no answer. will attempt later
--- NOTE | 2022-09-21 13:07 | NUR.NOTE ---
Nursing Note: Spoke with son sandhya and provided an update on pt and poc. spoke about results of blood work and scans
--- NOTE | 2022-09-21 14:12 | CHAPLAIN ---
Brendon was sitting up in bed when I visited. I explained my role and offered support. Brendon said she is feeling a bit better, but still have difficulty catching her breath while speaking, so I didn't stay too long. She is in touch with family by phone. I will visit again tomorrow.
--- NOTE | 2022-09-21 14:15 | STREC_ITS ---
Date of service: 09/21/22 Time of Service: 13:15 Speech Therapy Recommendations Report ST Recommendations: FRONT END WEB DESIGNER Communication / Non-Treatment Note Consult order received; chart reviewed. FRONT END WEB DESIGNER communicated order to covering FRONT END WEB DESIGNER for 09/22. HPI: Patient is a 76 yo female patient who presented to the [facility] emergency department, from [facility] for chief complaint of worsening cough and shortness of breath, also with low 02 of 88% on RA (currently 2 L NC and 02 in mid-90s); PMHx significant for cardiomyopathy and CHF.? Negative for COVID influenza and RSV.? Review of chest x-ray showed significant pleural effusion and opacity of the left lung; currently being treated for both pneumonia and diuresis for pulmonary effusion. On Level 7 Reg Solids / 0 Thin liquids diet, nursing reports having some trouble with chewing; Pulm was also consulted. Plan: FRONT END WEB DESIGNER to return 09/22 for full assessment/screening as appropriate, provide updated recommendations. Pooja Ly MA CCC-FRONT END WEB DESIGNER Speech-Language Pathologist [place]#[phone] Coding
--- NOTE | 2022-09-21 14:15 | PDOC.STREC ---
Date of service: 09/21/22 Time of Service: 13:15 Speech Therapy Recommendations Report ST Recommendations: CARB[employer] LAMP CLE[employer]ER Communication / Non-Treatment Note Consult order received; chart reviewed. CAR[employer] LAMP CLE[employer]ER communicated order to covering CARBON LAMP CLEANER for 09/22. HPI: Patient is a 76 yo female patient who presented to the [facility] emergency department, from [facility] for chief complaint of worsening cough and shortness of breath, also with low 02 of 88% on RA (currently 2 L NC and 02 in mid-90s); PMHx significant for cardiomyopathy and CHF.? Negative for COVID influenza and RSV.? Review of chest x-ray showed significant pleural effusion and opacity of the left lung; currently being treated for both pneumonia and diuresis for pulmonary effusion. On Level 7 Reg Solids / 0 Thin liquids diet, nursing reports having some trouble with chewing; Pulm was also consulted. Plan: CARB[employer] LAMP CLEANER to return 09/22 for full assessment/screening as appropriate, provide updated recommendations. Pooja Ly MA CCC-CARBON LAMP CLEANER Speech-Language Pathologist [place]#[phone] Coding
--- NOTE | 2022-09-21 15:56 | PGE_ITS ---
Date of Service Date of service: 09/21/22 Time of Service: 15:56 Assessment and Plan Assessment and plan (1) Hypoxia: Status: Acute Assessment and plan: Oxygen while treating pneumonia wean as able, continue pulmonary toileting (2) Pneumonia: Status: Acute Assessment and plan: LLL pneumonia consider to broaden to cover for aspiration. moxifloxacin for 7 days in setting of pcn allergy (3) First degree AV block: Status: Chronic Assessment and plan: Chronic, stable - on telemetry (4) Cardiomyopathy: Status: Acute Assessment and plan: Echo Conclusion Technically difficult and suboptimal study Left ventricle appears grossly normal in size, wall thickness and systolic function.? EF is 55% Left atrium is mildly dilated Right atrium and right ventricle are not well visualized Within the limits of the study, no structural or hemodynamically significant valvular disease is identified No evidence of CHF (5) Muscular dystrophy: Status: Chronic Assessment and plan: Continue current treatment Fentanyl patch 12 mcg every 48h Cyclobenzaprine 5 mg q8h prn (6) Hypertension: Status: Chronic Assessment and plan: Continue carvedilol and irbesartan (7) CHF (congestive heart failure): Status: Chronic Assessment and plan: Chronic - home dose of furosemide 20 mg daily; increased to 40 mg and monitor output, lung sounds, edema - titrate as necessary (8) DVT prophylaxis: Status: Acute Assessment and plan: Enoxaparin 40 mg sc q24h (9) Discharge planning issues: Status: Acute Assessment and plan: Return to [facility] when stable discussed with Dr Barboza Subjective Subjective Patient reports: no new complaints, feels better, tolerating liquids well, tolerating a regular diet and afebrile Exam Const General: cooperative and comfortable Nutritional Appearance: obese Orientation: alert and awake [facility] Head: normal to inspection, normocephalic and atraumatic Mouth: oral mucosae normal Neck Neck: normal visual inspection and full ROM Resp Effort & Inspection: normal respiratory effort and able to speak in complete sentences Cardio Rate: regular rate Rhythm: regular rhythm Skin General skin exam: no rashes or lesions noted and dry skin (warm) Neuro General: patient alert, patient awake and patient oriented x3 Cognition: normal cognition Speech: speech normal Objective Last Vital Signs Temp 35.7 C L 09/21/22 14:47 Pulse 75 09/21/22 14:47 Resp 16 09/21/22 14:47 BP 129/79 09/21/22 14:47 Pulse Ox 95 09/21/22 14:47 Laboratory Results - last 24 hr 09/21/22 09/21/22 06:15 06:15 WBC 5.39 RBC 4.43 Hgb 13.8 Hct 42.9 MCV 97 H MCH 31.2 MCHC 32.2 RDW 13.2 Plt Count 273 MPV 10.4 Immature Gran % 0.2 Neutrophils % 47.2 Lymphocytes % 33.0 Monocytes % 18.6 Eosinophils % 0.4 Basophils % 0.6 Nucleated RBC % 0.0 Absolute Neutrophils 2.55 Absolute Lymphocytes 1.78 Absolute Monocytes 1.00 H Absolute Eosinophils 0.02 Absolute Basophils 0.03 Sodium 138 Potassium 3.4 L Chloride 94 L Carbon Dioxide 34.9 H Anion Gap 9.1 BUN 14 Creatinine 0.4 L Est GFR (CKD-EPI 2020) 101.87 Glucose 94 Calcium 8.6 Magnesium 1.6 L C-Reactive Protein 7.59 H Time Spent with Patient Time Spent with Patient: 35-49 minutes Time was spent: preparing to see the patient(eg.review tests), obtaining and/or reviewing separately otained hiistory, ordering medications,tests, procedures and indepentently interpreting results
[2022-09-21] MEDS: fentaNYL 12 MCG PATCH TD (16:38)
[2022-09-21] MEDS: Polyethylene Glycol 3350 17 GM PACKET PO (20:51)
[2022-09-22] VITALS (13 sets, daily range): BP systolic 126–166; BP diastolic 74–102; PULSE 57–94; RESP 2–22; TEMP 35.7–36.7; O2SAT 88–98
[2022-09-22] MEDS: Doxycycline Hyclate 100 MG CAP PO (07:50)
[2022-09-22] MEDS: Irbesartan 75 MG TAB 150 MG PO (07:50)
[2022-09-22] MEDS: Carvedilol 12.5 MG TAB PO ×2 (07:50→19:44)
[2022-09-22] MEDS: Aspirin 81 MG CHEW PO (07:50)
[2022-09-22] MEDS: Refresh PLUS Eye Drops 0.4ml 1 EACH OP ×2 (07:51→19:45)
[2022-09-22] MEDS: Lidocaine 5% Patch 1 PATCH TP (08:33)
--- NOTE | 2022-09-22 10:42 | NUR.NOTE ---
Nursing Note: spoke with charge nurse about pt held lasix. pt is edematous with intermittent episodes of sob, mainly with movement. asked for an update
--- NOTE | 2022-09-22 12:33 | W.PM.DS.N ---
Date of service: 09/22/22 Time of Service: 12:33 DS: Diagnosis Discharge Diagnosis (1) CHF (congestive heart failure): Status: Chronic (2) Pneumonia: Status: Acute (3) Hypoxia: Status: Acute Discharge Plan Disposition [facility] Disposition[facility]) Condition: Improving Condition: Stable Discharge Details Reason For Visit: Pneumonia Admit Date/Time: 09/19/22 13:04 Admit Provider: Donn Barboza Attending Provider: Donn Barboza Primary Care Provider: Unknown,Unknown Hospital Course Hospital Course: This is a 76 year old female with history of muscular dystrophy, chf, gerd, cad who presented to the ED with shortness of breath and cough. work up showed left sided infiltrate/pleural effusion. she was seen by pulmonary and her illness was thought to be most consistent with chf. she was diuresed and kept on doxycycline as a pneumonia could not be completely ruled out. she slowly was improving and oxygen weaned. she remained afebrile and with normal white count. inflammatory markers elevated and echo unremarkable. I suspect this is now more pneumonia than chf so will discharge her on moxifloxacin to cover for aspiration. she will resume usual home medication and continue pulmonary toileting. discharge discussed with DR Barboza. Home Meds and New Rx's Prescriptions: New moxifloxacin 400 mg tablet 400 mg PO DAILY 7 Days Qty: 7 0RF guaifenesin 600 mg tablet extended release 12hr 600 mg PO BID Qty: 20 0RF Continued acetaminophen 650 mg Tablet 650 PO Q6H PRN PRN carboxymethylcellulose sodium Drops 1 drp ophthalmic (eye) BID PRN Rx Instructions: for dry eyes calcium carbonate 500 mg Wafer 500 mg PO Q4-5H PRN Rx Instructions: for indigestion carvedilol 12.5 mg Tablet 12.5 mg PO BID Rx Instructions: must administer with a meal/food cyclobenzaprine 5 mg Tablet 5 mg PO Q8H PRN PRN (Reason: Muscle Spasm) ipratropium-albuterol 0.5 mg-3 mg(2.5 mg base)/3 mL Solution For Nebulization 3 ml INHALATION QID PRN magnesium hydroxide 400 mg/5 mL Suspension 30 ml PO DAILY PRN (Reason: Constipation) lidocaine 5 % Adhesive Patch,Medicated 1 patch TOPICAL DAILY Rx Instructions: leave on most painful area for up to 12 hrs furosemide 20 mg Tablet 20 mg PO DAILY irbesartan 150 mg Tablet 150 mg PO DAILY enoxaparin 40 mg/0.4 mL Syringe 40 mg subcut DAILY fentanyl 12 mcg/hr Patch 72 Hour 12 mcg topical Q OTHER DAY meclizine 12.5 mg Tablet 12.5 mg PO TID PRN Rx Instructions: dizziness triamcinolone acetonide 0.1 % Cream 1 applic TOPICAL BID PRN Rx Instructions: eczema polyethylene glycol 3350 [Miralax] 17 gram/dose Powder 17 g PO DAILY PRN PRN Rx Instructions: constipation ramelteon 8 mg Tablet 8 mg PO QHS PRN Rx Instructions: insomnia aspirin 81 mg Tablet,Chewable 81 mg PO DAILY Discharge Instructions Instructions: Pneumonia (DC) Additional Instructions: continue incentive spirometer and acapella with cough and deep breathing every 1-2 hours while awake. Referrals: Nancy Lala MD [ [facility] STAFF PHYSICIAN] - Activity:: Activity as Tolerated Equipment/Supplies:: No Equipment Needed Diet:: As Tolerated Discharge Orders Discharge Orders: Discharge Order (Routine); Ordered 09/22/22 Ordered By: Isabel Hemphill DS: Summary Time Spent with Patient providing and/or coordinating discharge services: Greater than 30 minutes Status at Discharge Functional status at discharge: bed bound Overall status at discharge: patient is not back to baseline Mental Status: mental status grossly normal Speech and Movement: speech and movement normal Mood: congruent mood Affect: normal affect Exam Const General: cooperative and comfortable Nutritional Appearance: obese Orientation: alert and awake HENMT Head: normal to inspection, normocephalic and atraumatic Mouth: oral mucosae normal Neck Neck: normal visual inspection and full ROM Resp Effort & Inspection: normal respiratory effort and able to speak in complete sentences Cardio Rate: regular rate Rhythm: regular rhythm Skin General skin exam: no rashes or lesions noted and dry skin (warm) Neuro General: patient alert, patient awake and patient oriented x3 Cognition: normal cognition Speech: speech normal Psych Mental Status: mental status grossly normal Speech and Movement: speech and movement normal Mood: congruent mood Affect: normal affect DS: Data Vitals/I&O Vitals and I&O: Vital Signs Temperature 35.7 C L 09/22/22 11:40 Temperature Source Tympanic 09/22/22 11:40 Pulse 88 09/22/22 11:40 Pulse Rhythm Regular 09/22/22 04:40 Pulse 101 H 03/26/23 14:01 Respiratory Rate 16 09/22/22 11:40 Respiratory Effort Normal, Non-Labored 09/22/22 04:40 Respiratory Depth Normal 09/22/22 04:40 Respiratory Pattern Normal 09/22/22 04:40 Blood Pressure 159/92 H 09/22/22 11:40 Blood Pressure Mean 95 09/19/22 14:01 Blood Pressure Position Sitting 09/19/22 10:13 Pulse Oximetry 94 09/22/22 11:40 Oxygen Delivery Method Nasal Cannula 09/22/22 11:40 Oxygen Flow Rate 0.5 09/22/22 11:40 Pain Level 0 09/22/22 11:40 Comment RN notified, patient to stay on 0.5L NC at this time 09/22/22 05:52 Intake & Output 09/21/22 09/22/22 09/22/22 23:59 11:59 23:59 Intake Total 290 / 490 Output Total 750 / 1850 875 / 875 Balance -460 / -1360 -875 / -875 Weight 113.5 kg Intake: IV Oral 280 / 480 Output: Urine 750 / 1850 875 / 875 Other: Urine Color Yellow Yellow Straw Urine Appearance Clear Clear Comment Replaced catheter stat lock to left leg. draining more efficient Stool Size Moderate Stool Characteristics Soft Data Completed and Pending Labs on day of discharge: 09/22/22 11:45 Sputum Sputum Culture - Pending 09/22/22 11:45 Sputum Gram Stain - Pending Preliminary micro results at discharge 09/22/22 11:45 Sputum Culture - Pending Sputum Gram Stain - Pending 09/19/22 11:12 Blood Culture - Preliminary Blood NO GROWTH 48 HOURS 09/19/22 10:50 Blood Culture - Preliminary Blood NO GROWTH 48 HOURS PFSH All Active Problems (Updated 09/20/22 @ 10:44 by Nancy Lala MD) DVT prophylaxis (Acute) Discharge planning issues (Acute) Hypoxia (Acute) Pneumonia (Acute) Chronic venous hypertension (Acute) Coronary artery disease without angina pectoris (Acute) Hyperlipidemia (Acute) First degree AV block (Chronic) GERD (gastroesophageal reflux disease) (Chronic) Cardiomyopathy (Acute) Chronic pain (Chronic) Muscular dystrophy (Chronic) Hypertension (Chronic) CHF (congestive heart failure) (Chronic) Social History Smoking/Tobacco Use Status: Never Smoking risk assessment performed?: Yes Alcohol Intake: former Drug use: Never Substance use type: does not use Do you feel safe at home: Yes Do you feel safe in your relationship?: Yes Time Spent with Patient Time Spent with Patient: 45-69 minutes Time was spent: preparing to see the patient(eg.review tests), ordering medications,tests, procedures, indepentently interpreting results, counseling the patient and care coordination
--- NOTE | 2022-09-22 12:53 | NUR.NOTE ---
Nursing Note: called [facility] report and update to nurse resuming care at facility. staff nurse was willy. no questions noted.
--- NOTE | 2022-09-22 12:54 | CMDISCH_ITS ---
- If Service Date Differs Date of service: 09/22/22 Time of Service: 12:54 LACE Index Scoring Tool - Questions: Length of Stay (in days): 3 Acuity (Admit via E.D.?): Yes E.D. Visits: 1 - Answers: Total Score: 7 Risk of Readmission: Low Risk Care Management Discharge Reason for Hospitalization: Pneumonia Discharge Plan: Brendon is discharged back to [facility] via EMS. She will follow up with community providers and discharge plan of care as prescribed. Services Needed at Discharge: Prison Facility (Return to [facility] where she resides), Transportation (Mary, 3pm, coordinated by AURELIA)
[2022-09-22 13:23] LABS: Source Nasal/Nares
[2022-09-22] MEDS: Albuterol 2.5 MG/3 ML INH SOLN VIAL UPD (13:50)
[2022-09-22] MEDS: Ipratropium 0.5 MG/2.5 ML UPD VIAL UPD (13:52)
[2022-09-22 14:08] LABS: COVID-19 PCR Negative (Negative)
[2022-09-22] MEDS: Furosemide 20 MG TAB 40 MG PO (14:23)
--- NOTE | 2022-09-22 14:53 | NUR.NOTE ---
Nursing Note: pt had increased sob. charge nurse came to assess pt and oxygen saturation was 86% 2l nc. jai automatic engraver notified and cancelled discharge.
--- NOTE | 2022-09-22 14:53 | PGE_ITS ---
Date of Service Date of service: 09/22/22 Time of Service: 14:53 Assessment and Plan Assessment and plan (1) Hypoxia: Status: Acute Assessment and plan: Oxygen while treating pneumonia wean as able, continue pulmonary toileting (2) Pneumonia: Status: Acute Assessment and plan: LLL pneumonia consider to broaden to cover for aspiration. moxifloxacin for 7 days in setting of pcn allergy (3) First degree AV block: Status: Chronic Assessment and plan: Chronic, stable - on telemetry (4) Cardiomyopathy: Status: Acute Assessment and plan: Echo Conclusion Technically difficult and suboptimal study Left ventricle appears grossly normal in size, wall thickness and systolic function.? EF is 55% Left atrium is mildly dilated Right atrium and right ventricle are not well visualized Within the limits of the study, no structural or hemodynamically significant valvular disease is identified No evidence of CHF (5) Muscular dystrophy: Status: Chronic Assessment and plan: Continue current treatment Fentanyl patch 12 mcg every 48h Cyclobenzaprine 5 mg q8h prn (6) Hypertension: Status: Chronic Assessment and plan: Continue carvedilol and irbesartan (7) CHF (congestive heart failure): Status: Chronic Assessment and plan: Chronic - home dose of furosemide 20 mg daily; increased to 40 mg and monitor output, lung sounds, edema - titrate as necessary (8) DVT prophylaxis: Status: Acute Assessment and plan: Enoxaparin 40 mg sc q24h (9) Discharge planning issues: Status: Acute Assessment and plan: Return to [facility] when stable discussed with Dr Barboza Subjective Subjective Patient reports: tolerating liquids well, shortness of breath and afebrile Exam Const General: cooperative and comfortable Nutritional Appearance: obese Orientation: alert and awake [facility] Head: normal to inspection, normocephalic and atraumatic Mouth: oral mucosae normal Neck Neck: normal visual inspection and full ROM Resp Effort & Inspection: normal respiratory effort and able to speak in complete sentences Cardio Rate: regular rate Rhythm: regular rhythm Skin General skin exam: no rashes or lesions noted and dry skin (warm) Neuro General: patient alert, patient awake and patient oriented x3 Cognition: normal cognition Speech: speech normal Psych Mental Status: mental status grossly normal Speech and Movement: speech and movement normal Mood: congruent mood Affect: normal affect Objective Last Vital Signs Temp 36.2 C L 09/22/22 14:04 Pulse 92 H 09/22/22 14:40 Resp 20 09/22/22 14:04 BP 166/102 H 09/22/22 14:04 Pulse Ox 88 L 09/22/22 14:11 Laboratory Results - last 24 hr 09/22/22 13:00 COVID-19 Source Nasal/Nares SARS-CoV-2 (PCR) Negative Time Spent with Patient Time Spent with Patient: 35-49 minutes Time was spent: preparing to see the patient(eg.review tests), obtaining and/or reviewing separately otained hiistory, ordering medications,tests, procedures and indepentently interpreting results
[2022-09-22] MEDS: Patch Removal 1 EACH TP (19:45)
--- NOTE | 2022-09-22 21:36 | NUR.NOTE ---
Nursing Note: Patient requesting that all four bed rails be in place. Patient states I feel safer if they are all up.
[2022-09-22] MEDS: Acetaminophen 325 MG TAB 650 MG PO (22:18)
[2022-09-23] VITALS (7 sets, daily range): BP systolic 102–148; BP diastolic 62–83; PULSE 56–92; RESP 16–20; TEMP 35.8–36.7; O2SAT 91–97
--- NOTE | 2022-09-23 | DI.RAD_ITS ---
Exam(s) XR PORTABLE CHEST AP EXAM: XR PORTABLE CHEST AP CLINICAL HISTORY: hypoxia, ongoing TECHNIQUE: 2D digital imaging was performed. COMPARISON: CR,XR XR PORTABLE CHEST AP from 09/19/2022 CR XR CHEST 2V PA LATERAL from 09/20/2022 FINDINGS: Exam is again limited by under penetration and multiple leads coiled over the lower chest. This obsc ures visualization of the lung bases. LUNGS: Increased densities are again noted in the left lung base. Lungs not well inflated. No pneum othorax. No large pleural effusion.. HEART: Enlarged, unchanged. AORTA: Normal diameter. BONES: Unremarkable for age. Soft tissues: Unremarkable. IMPRESSION: Stable appearance left lower lobe infiltrate. DATA REPOSITORY: RADIATION DOSE DELIVERED:
[2022-09-23 07:48] LABS: Anion Gap 2.9 mmol/L (3-11); BUN 12 mg/dL (7-18); CO2 43.1 mmol/L (21.0-32.0); CREATININE 0.5 mg/dL (0.55-1.02); Calcium 9.1 mg/dL (8.5-10.1); Chloride 95 mmol/L (98-107); Estimated GFR 96.54 (mL/min/1.73m2); Glucose 118 mg/dL (74-106); Potassium 3.3 mmol/L (3.5-5.1); Sodium 141 mmol/L (136-145)
[2022-09-23] MEDS: Aspirin 81 MG CHEW PO (08:22)
[2022-09-23] MEDS: Lidocaine 5% Patch 1 PATCH TP (08:22)
[2022-09-23] MEDS: Cyclobenzaprine 10 MG TAB 5 MG PO (08:22)
[2022-09-23] MEDS: Furosemide 20 MG TAB 40 MG PO (08:23)
[2022-09-23] MEDS: Irbesartan 75 MG TAB 150 MG PO (08:26)
[2022-09-23] MEDS: Carvedilol 12.5 MG TAB PO (08:27)
[2022-09-23] MEDS: Enoxaparin 40 MG/0.4 ML SYR SC (08:27)
[2022-09-23] MEDS: Refresh PLUS Eye Drops 0.4ml 1 EACH OP (08:27)
[2022-09-23] MEDS: Ondansetron 4 MG/2 ML VIAL IVP (09:35)
[2022-09-23] MEDS: Normal Saline Flush 10 ML SYR IVP (09:37)
[2022-09-23] MEDS: POTASSIUM CHLORIDE 10 MEQ/100 ML BAG 100 MEQ IVPB ×2 (09:37→11:25)
[2022-09-23 09:45] LABS: Magnesium 1.7 mg/dL (1.8-2.4)
[2022-09-23 10:07] LABS: Procalcitonin < 0.1 ng/mL
--- NOTE | 2022-09-23 10:13 | NUR.NOTE ---
Nursing Note: @0900 asked charge nurse for zofran meds. pt endorsing nausea and was dry heaving when this rn entered the room .
--- NOTE | 2022-09-23 10:15 | NUR.NOTE ---
Nursing Note: this rn notified that pts iv was irritating her. she is receiving potassium that is being diluted by ns. this rn slowed the rate of the potassium and educated pt that unfortunately it will not be pain free
[2022-09-23] MEDS: MAGNESIUM SULFATE 1 GM/100 ML BAG IVPB (12:38)
[2022-09-23] MEDS: Potassium Chloride 20 MEQ TABCR PO (13:12)
--- NOTE | 2022-09-23 13:57 | NUR.NOTE ---
Nursing Note: report called to the acute rehab center
== END 2022-09-23 14:09 | disposition skilled nursing facility (03) | DRG 291 ==
LOC: ER 13:39 → MS 14:16
PROVIDERS: Nurse Practitioner Acute Care; Nurse Practitioner Family; Admitting Provider Family Medicine; Emergency Provider Nurse Practitioner Family; Visit Provider Family Medicine
DX: I11.0 Hypertensive heart disease with heart failure (principal); J18.9 Pneumonia, unspecified organism; I42.9 Cardiomyopathy, unspecified; I50.9 Heart failure, unspecified; R09.02 Hypoxemia; I44.0 Atrioventricular block, first degree; I87.309 Chronic venous hypertension (idiopathic) without complications of unspecified lower extremity; I25.10 Atherosclerotic heart disease of native coronary artery without angina pectoris; E78.5 Hyperlipidemia, unspecified; K21.9 Gastro-esophageal reflux disease without esophagitis; G89.29 Other chronic pain; G71.00 Muscular dystrophy, unspecified
CPT/HCPCS: 36415; 80048; 80053; 84145; 87040; 87081; 87635; 87637; 93005; 93306; 94640; 96365; 96366; 96375; 99285; J1650; 71045; 71046; 83605; 83735; 83880; 84484; 85025; 86140; 87070; 87205; 93010; 94667; 99222; 99233; 99239; G0378; J1940; J1956; J2270; J2405; J3475; J3480; J3490; J7613; J7620; J7644

== ENCOUNTER 2022-09-24 05:49 | Emergency (ER) | payer MEDICARE, MEDICAID, SELFPAY ==
[2022-09-24] VITALS (17 sets, daily range): BP systolic 112–164; BP diastolic 54–116; PULSE 65–100; RESP 2–25; TEMP 36.4–36.8; O2SAT 87–98
--- NOTE | 2022-09-24 05:45 | RT.EKG_ITS ---
APPROVED REPORT Exam: Resting ECG Reason for Exam: difficulty breathing Patient Location: E HR:80 bpm ECG Measurements Heart Rate 80 AXIS DC 227 P 33 QRSd 90 QRS 7 QT 429 T -1 QTc 496 Conclusion Sinus rhythm...normal P axis, V-rate 60- 99 Atrial premature complex...SV complex w/ short R-R interval Prolonged DC interval...DC >220, V-rate 50- 90 Probable left atrial enlargement...P >50mS, <-0.10mV V1 Low voltage, precordial leads...precordial leads <1.0mV ECG showing narrow complex normal sinus rhythm at a rate of 80. Left axi s deviation no signs of LVH based on voltage criteria. No ST segment abnormalities. First-degree AV block new compared to prior. Slightly prolonged QTc at 496 ms. QTc more prolonged compared to prio r.
--- NOTE | 2022-09-24 06:12 | NUR.NOTE ---
Attempted to call [facility] in order to get pt's med rec. No answer. Will try again.
--- NOTE | 2022-09-24 06:12 | W.ED.GENAD ---
Discharge Plan Discharge Details Chief Complaint: RespSymp Clinical Impression: Acute on chronic respiratory failure with hypoxia and hypercapnia, First degree AV block, Prolonged QT interval Primary Care Provider: Unknown,Unknown ED Provider: John Hernandes [place] Meds and New Rx's Prescriptions: No Action acetaminophen 650 mg Tablet 650 PO Q6H PRN PRN carboxymethylcellulose sodium Drops 1 drp ophthalmic (eye) BID PRN Rx Instructions: for dry eyes calcium carbonate 500 mg Wafer 500 mg PO Q4-5H PRN Rx Instructions: for indigestion carvedilol 12.5 mg Tablet 12.5 mg PO BID Rx Instructions: must administer with a meal/food cyclobenzaprine 5 mg Tablet 5 mg PO Q8H PRN PRN (Reason: Muscle Spasm) ipratropium-albuterol 0.5 mg-3 mg(2.5 mg base)/3 mL Solution For Nebulization 3 ml INHALATION QID PRN magnesium hydroxide 400 mg/5 mL Suspension 30 ml PO DAILY PRN (Reason: Constipation) lidocaine 5 % Adhesive Patch,Medicated 1 patch TOPICAL DAILY Rx Instructions: leave on most painful area for up to 12 hrs furosemide 20 mg Tablet 20 mg PO DAILY irbesartan 150 mg Tablet 150 mg PO DAILY enoxaparin 40 mg/0.4 mL Syringe 40 mg subcut DAILY fentanyl 12 mcg/hr Patch 72 Hour 12 mcg topical Q OTHER DAY meclizine 12.5 mg Tablet 12.5 mg PO TID PRN Rx Instructions: dizziness triamcinolone acetonide 0.1 % Cream 1 applic TOPICAL BID PRN Rx Instructions: eczema polyethylene glycol 3350 [Miralax] 17 gram/dose Powder 17 g PO DAILY PRN PRN Rx Instructions: constipation ramelteon 8 mg Tablet 8 mg PO QHS PRN Rx Instructions: insomnia aspirin 81 mg Tablet,Chewable 81 mg PO DAILY moxifloxacin 400 mg tablet 400 mg PO DAILY 7 Days Qty: 7 0RF guaifenesin 600 mg tablet extended release 12hr 600 mg PO BID Qty: 20 0RF Medical Decision Making This is a normothermic and not tachycardic female with acute on chronic respiratory failure likely secondary to underlying pneumonia versus CHF. Patient is on 2 L supplemental oxygen. She has been appropriately anticoagulated with enoxaparin however given her obesity and immobilization will proceed to CTA to assess for PE given her reported hemoptysis. No chest pain to suggest ACS and nonischemic ECG so I did not obtain a troponin. No significant wheezes nor any history of reactive airway disease so no indication for nebulizer. No significant lower extremity pitting edema to suggest CHF. Based on the patient's markedly elevated BMI and a history of heart failure with preserved ejection fraction it is certainly possible that the patient could have pulmonary hypertension superimposed upon her current episode of pneumonia. Patient also has a fentanyl patch and has cyclobenzaprine and ramelteon on her medication list. As such a combination of opiate, muscle relaxer, and hypnotic could certainly contribute to hypoventilation in this obese immobilized female leading to derecruitment and hypoxia. Will obtain a venous blood gas to assess for hypercarbia and acidemia which could indicate CO2 retention. Will assess basic electrolytes and determine disposition following CT scan. I considered sepsis however the patient was not tachypneic or hypotensive nor febrile so I did not order lactate nor blood cultures. 6:38 AM Patient was found markedly hypercarbic with a venous CO2 of 72. She was not acidemic but will initiate treatment with rescue BiPAP. CBC with no anemia thrombocytopenia nor leukocytosis.Chronically elevated bicarbonate but no RAMIRO nor any acute electrolyte abnormalities. 7 AM I spoke with respiratory therapy and they requested trial patient on less oxygen to see if her hypercarbia improved as she was saturating 98% on 2 L. Will down titrate her oxygen to 1 L and redraw a venous blood gas at 7:30 AM. We will sign patient out to the oncoming daytime provider, Dr. Morillo. I have ordered the patient's repeat venous blood gas. 7:15 AM Patient was more short of breath likely after laying flat during CAT scan. She was having difficulty coughing up her sputum. I gave her guaifenesin and nebulized albuterol as it seemed there was a component of bronchospasm. HPI General Date/Time Provider Initiated Documentation: 09/24/22 06:08. HPI Narrative: This is a 76-year-old bedbound female with a history of muscular dystrophy, heart failure with preserved ejection fraction, GERD, and coronary artery disease arriving via EMS from local [facility] facility in the setting of worsening shortness of breath. Patient was discharged yesterday from [facility] where she had been diuresed and treated with antibiotics in the setting of pneumonia with CHF. She had an echocardiogram which was technically limited but showed preserved EF. She was discharged on moxifloxacin. She reports feeling more short of breath overnight. She was discharged on oxygen reportedly at 1 L and continue incentive spirometry with Acapella and deep cough and breathing every 1-2 hours while awake. She was reportedly feeling more short of breath and her oxygen saturations were 89% on 1 L that she was increased to 4 L. She reports at base line she is bedbound and requires a Mandy lift. She has been adherent with her antibiotics. She received prophylaxis against DVTs while an inpatient and she continues on enoxaparin. She denies routine tobacco, ethanol, and illicits. She has not noticed any significant lower extremity worsening edema. She has not been nauseous nor vomiting. She has not had any fevers although she felt hot earlier this evening. She does say that she had several episodes of hemoptysis. She describes spitting up a tablespoon of blood. Related Data Home Medications Medication Instructions Recorded Confirmed acetaminophen 650 mg tablet 650 PO Q6H PRN PRN 09/19/22 aspirin 81 mg chewable tablet 81 mg PO DAILY 09/19/22 09/19/22 calcium carbonate 500 mg oral wafer 500 mg PO Q4-5H PRN 09/19/22 09/19/22 carboxymethylcellulose sodium 1 drp ophthalmic (eye) BID PRN 09/19/22 09/19/22 carvedilol 12.5 mg tablet 12.5 mg PO BID 09/19/22 09/19/22 cyclobenzaprine 5 mg tablet 5 mg PO Q8H PRN PRN Muscle Spasm 09/19/22 09/19/22 enoxaparin 40 mg/0.4 mL 40 mg subcut DAILY 09/19/22 09/19/22 subcutaneous syringe fentanyl 12 mcg/hr transdermal 12 mcg topical Q OTHER DAY 09/19/22 09/19/22 patch furosemide 20 mg tablet 20 mg PO DAILY 09/19/22 09/19/22 ipratropium 0.5 mg-albuterol 3 mg 3 ml inhalation QID PRN 09/19/22 09/19/22 (2.5 mg base)/3 mL nebulization soln irbesartan 150 mg tablet 150 mg PO DAILY 09/19/22 09/19/22 lidocaine 5 % topical patch 1 patch topical DAILY 09/19/22 09/19/22 magnesium hydroxide 400 mg/5 mL 30 ml PO DAILY PRN Constipation 09/19/22 09/19/22 oral suspension meclizine 12.5 mg tablet 12.5 mg PO TID PRN 09/19/22 09/19/22 polyethylene glycol 3350 17 17 g PO DAILY PRN PRN 09/19/22 09/19/22 gram/dose oral powder (Miralax) ramelteon 8 mg tablet 8 mg PO QHS PRN 09/19/22 09/19/22 triamcinolone acetonide 0.1 % 1 applic topical BID PRN 09/19/22 09/19/22 topical cream guaifenesin 600 mg tablet, 600 mg PO BID #20 tabs 09/22/22 extended release 12 hr moxifloxacin 400 mg tablet 400 mg PO DAILY 7 days #7 tabs 09/22/22 Previous Rx's Medication Instructions Recorded guaifenesin 600 mg tablet, 600 mg PO BID #20 tabs 09/22/22 extended release 12 hr moxifloxacin 400 mg tablet 400 mg PO DAILY 7 days #7 tabs 09/22/22 Allergies Allergy/AdvReac Type Severity Reaction Status Date / Time atorvastatin [From Lipitor] Allergy Unverified 09/19/22 13:43 Penicillins Allergy Unverified 09/19/22 13:43 sean hips Allergy Unverified 09/19/22 13:43 gabapentin [From Neurontin] AdvReac Unverified 09/19/22 13:43 ibuprofen AdvReac Unverified 09/19/22 13:43 lovastatin AdvReac Unverified 09/19/22 13:43 metoclopramide [From Reglan] AdvReac Unverified 09/19/22 13:43 General Stated Complaint: RespSymp IFEANYI: 3 PFSH All Active Problems (Updated 09/24/22 @ 06:42 by John Hernandes MD) Acute on chronic respiratory failure with hypoxia and hypercapnia (Acute) First degree AV block (Acute) Prolonged QT interval (Acute) Hypoxia (Acute) Pneumonia (Acute) Chronic venous hypertension (Acute) Coronary artery disease without angina pectoris (Acute) Hyperlipidemia (Acute) First degree AV block (Chronic) GERD (gastroesophageal reflux disease) (Chronic) Cardiomyopathy (Acute) Chronic pain (Chronic) Muscular dystrophy (Chronic) Hypertension (Chronic) CHF (congestive heart failure) (Chronic) Social History Smoking/Tobacco Use Status: Never Smoking risk assessment performed?: Yes Alcohol Intake: former Drug use: Never Substance use type: does not use Do you feel safe at home: Yes Do you feel safe in your relationship?: Yes Exam Narrative Exam Narrative: General: Chronically ill-appearing in no acute distress speaking in complete sentences. Intermittently closing her eyes during conversation. Head: Normocephalic, atraumatic Ear, nose, mouth, throat: Grossly normal inspection. Normal voice, handling secretions normally. Neck: Trachea midline. Cardiovascular: Well-perfused distal extremities. Regular rate and rhythm. No murmurs. Difficult to assess for JVD secondary to body habitus. Respiratory: Nonlabored respiration. Bilateral rhonchi. Gastrointestinal: Nondistended abdomen. Musculoskeletal: No significant lower extremity pitting edema. Moving all 4 extremities spontaneously. Skin: Normal for age and race, grossly normal temperature and turgor. No acute rash. Neurologic: Alert and appropriate, no apparent acute deficits. Alert and oriented to person place and time. Psychiatric: Mood and manner are appropriate. Grooming and personal hygiene are appropriate. Course Vital Signs Vital signs: Vital Signs Temperature 36.4 C 09/24/22 05:49 Pulse 81 09/24/22 05:49 Respiratory Rate 20 09/24/22 05:49 Blood Pressure 164/92 H 09/24/22 05:49 Pulse Oximetry 92 09/24/22 05:49 Temperature 36.4 C 09/24/22 05:49 Temperature Source Oral 09/24/22 05:49 Pulse 81 09/24/22 05:49 Respiratory Rate 20 09/24/22 05:49 Respiratory Effort Normal, Non-Labored 09/24/22 06:04 Respiratory Depth Shallow 09/24/22 06:04 Blood Pressure 164/92 H 09/24/22 05:49 Blood Pressure Position Sitting 09/24/22 05:49 Pulse Oximetry 92 09/24/22 05:49 Oxygen Delivery Method Nasal Cannula 09/24/22 05:49 Oxygen Flow Rate 3 09/24/22 05:49 Pain Level 1 09/24/22 05:49
--- NOTE | 2022-09-24 06:15 | DI.CT_ITS ---
Exam(s) CT CHEST PE CTA EXAM: CT CHEST PE CTA CLINICAL HISTORY: Shortness of breath hemoptysis. TECHNIQUE: Imaging Protocol: Axial CT angiography was performed with multi-slice acquisition and mu lti-planar reconstructions as well as axial, coronal and sagittal MIP reconstructions. CONTRAST MATERIAL: Intravenous: Omnipaque 350 Contrast volume:100 ml COMPARISON: CR,XR XR PORTABLE CHEST AP from 09/19/2022 CR XR CHEST 2V PA LATERAL from 09/20/2022 CR XR PORTABLE CHEST AP from 09/23/2022 FINDINGS: Exam is limited by patient body habitus and arm positioning. Exam also limited by respiratory motion . Pulmonary Arteries: No evidence of filling defect to suggest pulmonary emboli. Tracheobronchial tree: Patent where visualized. Mediastinum and Jyotsna: No dominant adenopathy or fluid collection. Pulmonary parenchyma: Left lower lobe atelectasis and/or infiltrate. Patchy densities noted at left lung base. Pleura: No effusion or pneumothorax. Heart: The heart is mildly dilated. No coronary artery calcifications are visible. Aorta: Thoracic aorta non-dilated. No aneurysm. No dissection. Upper abdomen: Unremarkable. Bones: Degenerative changes. No fracture. Soft tissues: Extreme muscle atrophy. IMPRESSION: Near complete atelectasis and/or infiltrate of the left lower lobe. RADIATION DOSE DELIVERED: 640.86mGy.cm Total DLP DATA REPOSITORY: All CT scans at this facility are submitted to the National Radiology Data Registry (NRDR) Dose Index Registry (DIR) with the [employer] ([employer]). RADIATION OPTIMIZATION: All CT scans at this facility use at least one of these dose optimization te chniques: automated exposure control; mA and/or kV adjustment per patient size (includes targeted exa ms where dose is matched to clinical indication); or iterative reconstruction.
[2022-09-24 06:20] LABS: BE (Venous) > 15 mmol/L (-2-3); HCO3 (Venous) 44 mmol/L (23-28); O2 Sat (Venous) 86 %; TCO2 (Venous) 38 mmol/L (24-29); pH (Venous) 7.39 (7.31-7.41); pO2 (Venous) 52 mmHg
[2022-09-24 06:22] LABS: Abs Immature Grans 0.02 10^3/uL (0.0-0.06); Absolute Basophil Count 0.03 10^3/uL (0.0-0.2); Absolute Eosinophil Count 0.12 10^3/uL (0.0-0.7); Absolute Lymphocyte Count 2.53 10^3/uL (1.2-3.4); Absolute Monocyte Count 1.04 10^3/uL (0.1-0.8); Absolute Neutrophil Count 4.85 10^3/uL (1.2-6.7); Basophils % 0.3; Eosinophils % 1.4; HCT 47.8 % (36.0-46.0); Immature Grans % 0.2; Lymphocytes % 29.5; MCH 30.7 pg (27.0-33.0); MCHC 31.4 % (32.0-36.0); MCV 98 fL (80-95); MPV 10.5 fL (8.0-11.0); Monocytes % 12.1; Neutrophils % 56.5; Platelet Count 267 10^3/uL (130-400); RBC 4.88 10^6/uL (3.93-5.22); RDW 13.2 % (11.7-14.6); RDW-SD 47.8 fL; WBC 8.59 10^3/uL (4.4-10.8)
[2022-09-24 06:26] LABS: pCO2 (Venous) 72 mmHg (41-51)
[2022-09-24 06:40] LABS: Anion Gap 2.2 mmol/L (3-11); BUN 16 mg/dL (7-18); CO2 41.8 mmol/L (21.0-32.0); CREATININE 0.4 mg/dL (0.55-1.02); Calcium 9.3 mg/dL (8.5-10.1); Chloride 95 mmol/L (98-107); Estimated GFR 101.87 (mL/min/1.73m2); Glucose 135 mg/dL (74-106); Magnesium 1.8 mg/dL (1.8-2.4); Potassium 3.8 mmol/L (3.5-5.1); Sodium 139 mmol/L (136-145)
--- NOTE | 2022-09-24 06:40 | NUR.NOTE ---
Per MD Bryan place pt on BiPAP. RT paged.
[2022-09-24 07:03] LABS: D-Dimer 679 ng/mlFEU (<500)
[2022-09-24] MEDS: Omnipaque 350 MG/ML 100 ML BTL IJ (07:06)
[2022-09-24] MEDS: Normal Saline - Diluent 50 ML VIAL IV (07:07)
[2022-09-24] MEDS: guaiFENesin 200 MG/10 ML CUP 100 MG PO (07:21)
[2022-09-24] MEDS: Albuterol 2.5 MG/3 ML INH SOLN VIAL (07:28)
[2022-09-24 07:43] LABS: BE (Venous) > 15 mmol/L (-2-3); HCO3 (Venous) 45 mmol/L (23-28); O2 Sat (Venous) 58 %; TCO2 (Venous) 40 mmol/L (24-29); pH (Venous) 7.37 (7.31-7.41); pO2 (Venous) 32 mmHg
[2022-09-24 07:45] LABS: pCO2 (Venous) 78 mmHg (41-51)
--- NOTE | 2022-09-24 07:58 | DI.VRAD_ITS ---
PROCEDURE INFORMATION: Exam: CTA Chest With Contrast Exam date and time: 09/24/2022 7:01 AM Age: 76 years old Clinical indication: Shortness of breath; Patient HX: SOB, hemoptysis TECHNIQUE: Imaging protocol: Computed tomographic angiography of the chest with contrast. 3D rendering (Not supervised by radiologist): MIP and/or 3D reconstructed images were created by the technologist. Radiation optimization: All CT scans at this facility use at least one of these dose optimization techniques: automated exposure control; mA and/or kV adjustment per patient size (includes targeted exams where dose is matched to clinical indication); or iterative reconstruction. Contrast material: OMNI-PAQUE 350; Contrast volume: 100 ml; Contrast route: INTRAVENOUS (IV); COMPARISON: CR XR PORTABLE CHEST AP 09/23/2022 11:18 AM FINDINGS: Pulmonary arteries: Normal. No pulmonary emboli. Aorta: Unremarkable. No aortic aneurysm. No aortic dissection. Lungs: There are bibasilar atelectatic changes, left more than right, with near complete atelectasis of the left lower lobe. Pleural spaces: Unremarkable. No pneumothorax. No pleural effusion. Heart: The heart is enlarged. There is no significant pericardial effusion. There are no significant coronary artery vascular calcifications. Lymph nodes: Unremarkable. No enlarged lymph nodes. Bones/joints: There is diffuse lack of developed thoracic skeletal musculature. Soft tissues: Unremarkable. IMPRESSION: 1. No evidence of pulmonary embolism or aortic dissection. 2. Bibasilar atelectatic changes, left more than right, with near complete atelectasis of the left lower lobe. 3. Cardiac enlargement. 4. Diffuse lack developed thoracic skeletal musculature. Correlate with history. Dictated and Authenticated by: Ramiro Jeffery MD. Ordering:FAISAL Lopez MD
--- NOTE | 2022-09-24 09:04 | ED.PROG_ITS ---
Date of service: 09/24/22 Time of Service: 09:04 Medical Decision Making Received signout from Dr. Hernandes. The patient's work-up revealed bilateral lower lung atelectasis, particularly with near complete consolidation of the left lower lobe. Bedside respiratory therapy with incentive spirometer and P and PD was performed. The patient was observed, she felt improved and ordered a meal tray. Patient able to wean to her outpatient level of 1 L oxygen. I will recommend P&PD be performed with ongoing chest physiotherapy and incentive spirometry. Patient is improved and appropriate for discharge Sign Out Sign Out Data: Sign Out Comment: Follow-up repeat venous blood gas, CTA for PE, and assist in determining patient's disposition. Last updated by John Hernandes MD at 09/24/22 07:47 Discharge Plan Disposition Patient Disposition: Residential Facility(SNF) Condition: Stable Discharge Details Clinical Impression: Acute on chronic respiratory failure with hypoxia and hypercapnia, First degree AV block, Prolonged QT interval, Acute atelectasis Primary Care Provider: Unknown,Unknown ED Provider: Doug Morillo Home Meds and New Rx's Prescriptions: Continued acetaminophen 650 mg Tablet 650 PO Q6H PRN PRN carboxymethylcellulose sodium Drops 1 drp ophthalmic (eye) BID PRN Rx Instructions: for dry eyes calcium carbonate 500 mg Wafer 500 mg PO Q4-5H PRN Rx Instructions: for indigestion carvedilol 12.5 mg Tablet 12.5 mg PO BID Rx Instructions: must administer with a meal/food cyclobenzaprine 5 mg Tablet 5 mg PO Q8H PRN PRN (Reason: Muscle Spasm) ipratropium-albuterol 0.5 mg-3 mg(2.5 mg base)/3 mL Solution For Nebulization 3 ml INHALATION QID PRN magnesium hydroxide 400 mg/5 mL Suspension 30 ml PO DAILY PRN (Reason: Constipation) lidocaine 5 % Adhesive Patch,Medicated 1 patch TOPICAL DAILY Rx Instructions: leave on most painful area for up to 12 hrs furosemide 20 mg Tablet 20 mg PO DAILY irbesartan 150 mg Tablet 150 mg PO DAILY enoxaparin 40 mg/0.4 mL Syringe 40 mg subcut DAILY fentanyl 12 mcg/hr Patch 72 Hour 12 mcg topical Q OTHER DAY meclizine 12.5 mg Tablet 12.5 mg PO TID PRN Rx Instructions: dizziness triamcinolone acetonide 0.1 % Cream 1 applic TOPICAL BID PRN Rx Instructions: eczema polyethylene glycol 3350 [Miralax] 17 gram/dose Powder 17 g PO DAILY PRN PRN Rx Instructions: constipation ramelteon 8 mg Tablet 8 mg PO QHS PRN Rx Instructions: insomnia aspirin 81 mg Tablet,Chewable 81 mg PO DAILY moxifloxacin 400 mg tablet 400 mg PO DAILY 7 Days Qty: 7 0RF guaifenesin 600 mg tablet extended release 12hr 600 mg PO BID Qty: 20 0RF Discharge Instructions Instructions: Atelectasis (ED) Additional Instructions: Your work-up included a CAT scan of the chest. You have bilateral lower lung atelectasis with near complete atelectasis of the left lower lobe. Please see the enclosed referral for physical therapy. You should have chest PT and postural drainage. Please continue use of incentive spirometry 10 times every 1-2 hours while awake. Continue the previously prescribed antibiotic. You were given today's dose of Avelox in the emergency department Continue your regular medications including the prescribed Avelox/moxifloxacin. Stand Alone Forms: Physical Therapy Referral
[2022-09-24] MEDS: Acetaminophen 500 MG TAB 1000 MG PO (10:03)
== END 2022-09-24 12:13 | disposition skilled nursing facility (03) ==
PROVIDERS: Emergency Medicine; Emergency Provider Emergency Medicine
DX: J96.21 Acute and chronic respiratory failure with hypoxia (principal); J96.22 Acute and chronic respiratory failure with hypercapnia; I44.0 Atrioventricular block, first degree; J98.11 Atelectasis; R94.31 Abnormal electrocardiogram [ECG] [EKG]; I11.0 Hypertensive heart disease with heart failure; I50.30 Unspecified diastolic (congestive) heart failure; J18.9 Pneumonia, unspecified organism; I25.10 Atherosclerotic heart disease of native coronary artery without angina pectoris; Z79.82 Long term (current) use of aspirin
CPT/HCPCS: 36415; 71275; 80048; 82805; 93005; 94640; 99285; 83735; 85025; 85379; 93010; 94668; J3490; J7613; J7644

== ENCOUNTER 2022-10-05 17:02 | Outpatient (REF) | payer SELFPAY ==
[2022-10-05 18:01] LABS: Anion Gap 4.8 mmol/L (3-11); BUN 10 mg/dL (7-18); CO2 40.2 mmol/L (21.0-32.0); CREATININE 0.6 mg/dL (0.55-1.02); Calcium 8.6 mg/dL (8.5-10.1); Chloride 97 mmol/L (98-107); Estimated GFR 92.39 (mL/min/1.73m2); Glucose 123 mg/dL (74-106); Sodium 142 mmol/L (136-145)
== END 2022-10-05 17:03 | disposition home or self-care (01) ==
LOC: LBN 17:02
PROVIDERS: Visit Provider Family Medicine
DX: I50.9 Heart failure, unspecified (principal)
CPT/HCPCS: 80048

== ENCOUNTER 2022-10-08 15:33 | Inpatient (IN) | payer MEDICARE, MEDICAID, SELFPAY ==
[2022-10-08] VITALS (20 sets, daily range): BP systolic 112–162; BP diastolic 76–82; PULSE 90–120; RESP 18–27; TEMP 36.5–36.6; O2SAT 82–100
--- NOTE | 2022-10-08 15:30 | RT.EKG_ITS ---
APPROVED REPORT Exam: Resting ECG Reason for Exam: dyspnea Patient Location: E HR:89 bpm ECG Measurements Heart Rate 89 AXIS GA 169 P 51 QRSd 97 QRS 47 QT 384 T -41 QTc 446 Conclusion Sinus rhythm...normal P axis, V-rate 60- 99 Probable left atrial enlargement...P >50mS, <-0.10mV V1 Low voltage, precordial leads...precordial leads <1.0mV Nonspecific T abnormalities, inferior leads...T <-0.10mV, II III aVF There are no significant changes compared to prior EKG performed on 09/24/2022 at 05:59.
--- NOTE | 2022-10-08 15:45 | DI.RAD_ITS ---
Exam(s) XR PORTABLE CHEST AP EXAM: XR PORTABLE CHEST AP CLINICAL HISTORY: SOB TECHNIQUE: 2D digital imaging was performed. COMPARISON: CR XR PORTABLE CHEST AP from 09/23/[address] CHEST PE CTA from 09/24/2022 FINDINGS: Interval worsening of areas of increased density in the left lower lobe compared with prior. Previou s CT showed left basilar infiltrate. Effusion may now be present. Increased patchy densities at the right lung bases suspicious for pneumonia. Cardiac silhouette is mainly obscured. IMPRESSION: Right basilar infiltrate. Interval worsening at lung left lung base could represent a combination of worsening infiltrate and effusion. DATA REPOSITORY: RADIATION DOSE DELIVERED:
--- NOTE | 2022-10-08 15:53 | ED.GENADUL_ITS ---
Discharge Plan Disposition Patient Disposition: Admit to [facility] Condition: Poor Discharge Details Clinical Impression: Pneumonia Primary Care Provider: Unknown,Unknown ED Provider: Narinder Thomas and New Rx's Prescriptions: No Action moxifloxacin 400 mg Tablet 400 mg PO QDAY acyclovir 5 % Ointment 1 applic TOPICAL QID PRN morphine [MS Contin] 15 mg Tablet Extended Release 15 mg PO QHS ramelteon 8 mg Tablet 8 mg PO QHS PRN Artificial Tears (cmc) 1 % Drops 1 drp ophthalmic (eye) BID PRN acetaminophen 650 mg Tablet 650 PO Q6H PRN PRN carboxymethylcellulose sodium Drops 1 drp ophthalmic (eye) BID PRN Rx Instructions: for dry eyes calcium carbonate 500 mg Wafer 500 mg PO Q4-5H PRN Rx Instructions: for indigestion carvedilol 12.5 mg Tablet 12.5 mg PO BID Rx Instructions: must administer with a meal/food cyclobenzaprine 5 mg Tablet 5 mg PO Q8H PRN PRN (Reason: Muscle Spasm) ipratropium-albuterol 0.5 mg-3 mg(2.5 mg base)/3 mL Solution For Nebulization 3 ml INHALATION QID PRN magnesium hydroxide 400 mg/5 mL Suspension 30 ml PO DAILY PRN (Reason: Constipation) lidocaine 5 % Adhesive Patch,Medicated 1 patch TOPICAL DAILY Rx Instructions: leave on most painful area for up to 12 hrs furosemide 20 mg Tablet 20 mg PO DAILY irbesartan 150 mg Tablet 150 mg PO DAILY enoxaparin 40 mg/0.4 mL Syringe 40 mg subcut DAILY fentanyl 12 mcg/hr Patch 72 Hour 12 mcg topical Q OTHER DAY meclizine 12.5 mg Tablet 12.5 mg PO TID PRN Rx Instructions: dizziness triamcinolone acetonide 0.1 % Cream 1 applic TOPICAL BID PRN Rx Instructions: eczema polyethylene glycol 3350 [Miralax] 17 gram/dose Powder 17 g PO DAILY PRN PRN Rx Instructions: constipation ramelteon 8 mg Tablet 8 mg PO QHS PRN Rx Instructions: insomnia aspirin 81 mg Tablet,Chewable 81 mg PO DAILY guaifenesin 600 mg tablet extended release 12hr 600 mg PO BID Qty: 20 0RF Medical Decision Making Medical Records Medical records reviewed: Yes I reviewed the patient's medical records. Medical records narrative: Reviewed previous admission at the end of August. She was admitted with similar presentation. She was felt to be more CHF related as opposed to pneumonia. [facility] She has finished a course of moxifloxacin last week. Patient is not in distress here. Saturations on facemask are in the mid 90s. Blood pressure is normal. EKG without acute changes. Portable chest x-ray obtained which shows per my read worsening of her left lower lobe consolidation and new right lower lobe findings. White count returned at 39. Suspect this is infectious/pneumonia as opposed to edema/CHF despite her edematous extremities. Other laboratory studies showed normal hemoglobin, normal kidney function, elevated bicarb at baseline for patient. Slightly low potassium. Patient ordered for 2 g cefepime and 2 g vancomycin. She is maintaining saturations on facemask. She is DNR/DNI. Trial of fluids and antibiotics is reasonable. However, no escalation of care beyond this per her MOLST. Discussed with hospitalist for admission for presumed pneumonia. Patient accepted to hospitalist service for further management. Lab Data Lab results reviewed: Yes I reviewed the patient's lab results. Lab results narrative: Markedly elevated white count. ECG Data Attestation: I personally reviewed and interpreted this ECG (s) as follows: Prior ECG tracings: available for review Interpretation: see EKG HPI General Mode of arrival: EMS . Date/Time Provider Initiated Documentation: 10/08/22 15:48 . Information obtained by: patient and EMS . HPI Narrative: Patient transferred to ED from [facility] with increased shortness of breath worsening throughout the day. Patient with history of CHF. She is fairly edematous. Patient with oxygen saturations in the mid 80s on nasal cannula when EMS arrived. She complains of some chest discomfort but not pain. She does not think she has had fever or cough. EMS placed her on facemask and she arrives with sats in the mid 90s. She is tachypneic but not in distress at this time. She is not able to provide much more in regards to history. Related Data Home Medications Medication Instructions Recorded Confirmed acetaminophen 650 mg tablet 650 PO Q6H PRN PRN 09/19/22 aspirin 81 mg chewable tablet 81 mg PO DAILY 09/19/22 10/08/22 calcium carbonate 500 mg oral wafer 500 mg PO Q4-5H PRN 09/19/22 10/08/22 carboxymethylcellulose sodium 1 drp ophthalmic (eye) BID PRN 09/19/22 09/19/22 carvedilol 12.5 mg tablet 12.5 mg PO BID 09/19/22 10/08/22 cyclobenzaprine 5 mg tablet 5 mg PO Q8H PRN PRN Muscle Spasm 09/19/22 10/08/22 enoxaparin 40 mg/0.4 mL 40 mg subcut DAILY 09/19/22 10/08/22 subcutaneous syringe fentanyl 12 mcg/hr transdermal 12 mcg topical Q OTHER DAY 09/19/22 10/08/22 patch furosemide 20 mg tablet 20 mg PO DAILY 09/19/22 10/08/22 ipratropium 0.5 mg-albuterol 3 mg 3 ml inhalation QID PRN 09/19/22 10/08/22 (2.5 mg base)/3 mL nebulization soln irbesartan 150 mg tablet 150 mg PO DAILY 09/19/22 10/08/22 lidocaine 5 % topical patch 1 patch topical DAILY 09/19/22 10/08/22 magnesium hydroxide 400 mg/5 mL 30 ml PO DAILY PRN Constipation 09/19/22 10/08/22 oral suspension meclizine 12.5 mg tablet 12.5 mg PO TID PRN 09/19/22 10/08/22 polyethylene glycol 3350 17 17 g PO DAILY PRN PRN 09/19/22 10/08/22 gram/dose oral powder (Miralax) ramelteon 8 mg tablet 8 mg PO QHS PRN 09/19/22 10/08/22 triamcinolone acetonide 0.1 % 1 applic topical BID PRN 09/19/22 09/19/22 topical cream guaifenesin 600 mg tablet, 600 mg PO BID #20 tabs 09/22/22 10/08/22 extended release 12 hr acyclovir 5 % topical ointment 1 applic topical QID PRN 10/08/22 10/08/22 carboxymethylcellulose sodium 1 % 1 drp ophthalmic (eye) BID PRN 10/08/22 10/08/22 eye drops (Artificial Tears (carboxymethylcellulose)) morphine 15 mg tablet,extended 15 mg PO QHS 10/08/22 10/08/22 release (MS Contin) moxifloxacin 400 mg tablet 400 mg PO QDAY 10/08/22 ramelteon 8 mg tablet 8 mg PO QHS PRN 10/08/22 10/08/22 Previous Rx's Medication Instructions Recorded guaifenesin 600 mg tablet, 600 mg PO BID #20 tabs 09/22/22 extended release 12 hr Allergies Allergy/AdvReac Type Severity Reaction Status Date / Time atorvastatin [From Lipitor] Allergy Unverified 10/08/22 16:18 Penicillins Allergy Unverified 10/08/22 16:18 sean hips Allergy Unverified 10/08/22 16:18 gabapentin [From Neurontin] AdvReac Unverified 10/08/22 16:18 ibuprofen AdvReac Unverified 10/08/22 16:18 lovastatin AdvReac Unverified 10/08/22 16:18 metoclopramide [From Reglan] AdvReac Unverified 10/08/22 16:18 General Stated Complaint: SOB IFEANYI: 3 Review of Systems Narrative: per HPI PFSH All Active Problems (Updated 10/08/22 @ 17:26 by Narinder Thomas MD) Acute on chronic respiratory failure with hypoxia and hypercapnia (Acute) First degree AV block (Acute) Prolonged QT interval (Acute) Acute atelectasis (Acute) Hypoxia (Acute) Pneumonia (Acute) Chronic venous hypertension (Acute) First degree AV block (Chronic) Chronic pain (Chronic) Medical History (Updated 10/08/22 @ 17:26 by Narinder Thomas MD) CHF (congestive heart failure) Coronary artery disease without angina pectoris GERD (gastroesophageal reflux disease) Hyperlipidemia Hypertension Muscular dystrophy Social History Smoking/Tobacco Use Status: Never Smoking risk assessment performed?: Yes Alcohol Intake: former Drug use: Never Substance use type: does not use Do you feel safe at home: Yes Do you feel safe in your relationship?: Yes Exam Narrative Exam Narrative: Const: Obese elderly female in NAD. HEENT: NC/AT. Normal facial exam. Eyes: Normal conjunctiva and sclera. Neck: Supple. Trachea midline. Lungs: Tachypneic but not in distress. Right lung with wet rhonchi throughout. Left lung markedly diminished especially in the lateral lower base. Cor: RRR without murmur/gallop. Good radial pulses. GI: Soft. NT/ND. No guarding or rebound. Neuro: A+O x 2 Normal speech. Cranial nerves II - XII grossly intact. No gross motor or sensory deficit. Ext: No C/C. Edema present in all 4 extremities. Worse in bilateral lower extremities than upper. Skin: Warm and dry without rash. Course Vital Signs Vital signs: Vital Signs Temperature 97.7 F 10/08/22 15:34 Pulse 99 H 10/08/22 15:34 Respiratory Rate 24 10/08/22 15:34 Blood Pressure 142/82 H 10/08/22 15:34 Pulse Oximetry 94 10/08/22 15:34 Temperature 97.7 F 10/08/22 15:34 Temperature Source Axillary 10/08/22 15:34 Pulse 99 H 10/08/22 15:34 Respiratory Rate 24 10/08/22 15:34 Blood Pressure 142/82 H 10/08/22 15:34 Blood Pressure Position Sitting 10/08/22 15:34 Pulse Oximetry 94 10/08/22 15:34 Oxygen Delivery Method Non-Rebreather 10/08/22 15:34 Pain Level 5 10/08/22 15:34
[2022-10-08 15:58] LABS: Abs Immature Grans 0.36 10^3/uL (0.0-0.06); Absolute Monocyte Count 1.65 10^3/uL (0.1-0.8); Basophils % 0.3; Eosinophils % 0.1; HCT 49.7 % (36.0-46.0); HGB 15.7 g/dL (11.2-15.7); Immature Grans % 0.9; MCH 30.3 pg (27.0-33.0); MCHC 31.6 % (32.0-36.0); MCV 96 fL (80-95); Monocytes % 4.3; Neutrophils % 88.4; Platelet Count 365 10^3/uL (130-400); RBC 5.19 10^6/uL (3.93-5.22); RDW 14.2 % (11.7-14.6); RDW-SD 50.8 fL
[2022-10-08 16:01] LABS: Absolute Basophil Count 0.11 10^3/uL (0.0-0.2); Absolute Eosinophil Count 0.04 10^3/uL (0.0-0.7); Absolute Neutrophil Count 33.87 10^3/uL (1.2-6.7); WBC 38.31 10^3/uL (4.4-10.8)
[2022-10-08 16:16] LABS: ALT 14 U/L (14-59); AST 12 U/L (15-37); Albumin 2.8 g/dL (3.4-5.0); Alkaline Phosphatase 121 U/L (46-116); Anion Gap 2.3 mmol/L (3-11); BUN 12 mg/dL (7-18); Bilirubin, Total 0.6 mg/dL (0.2-1.0); CO2 40.7 mmol/L (21.0-32.0); CREATININE 0.5 mg/dL (0.55-1.02); Calcium 8.8 mg/dL (8.5-10.1); Chloride 99 mmol/L (98-107); Estimated GFR 96.54 (mL/min/1.73m2); Glucose 146 mg/dL (74-106); Magnesium 1.9 mg/dL (1.8-2.4); Potassium 3.4 mmol/L (3.5-5.1); Sodium 142 mmol/L (136-145); Total Protein 7.5 g/dL (6.4-8.2); Troponin I < 50 ng/L (<or=60)
[2022-10-08] MEDS: CEFEPIME 2 GM in Normal Saline 100 ML IVPB ×2 (16:30→23:45)
[2022-10-08 17:20] LABS: COVID-19 PCR Negative (Negative); Influenza A PCR Negative (Negative); Influenza B PCR Negative (Negative); RSV PCR Negative (Negative)
[2022-10-08 17:21] LABS: Source Nasopharynx
[2022-10-08] MEDS: VANCOMYCIN/WATER (PEG) 2 GM/400 ML BAG IVPB (17:36)
--- NOTE | 2022-10-08 18:58 | HPE_ITS ---
Date of service: 10/08/22 Time of Service: 18:58 Assessment and Plan Assessment and plan (1) Acute on chronic respiratory failure with hypoxia and hypercapnia: Status: Acute Assessment and plan: Her situation worsened and when she arrived on the med-surg unit she was receiving 15L O2 per facemask and was obtunded. Morphine 2mg IV ordered prn for resp distress or signs of pain. A treatment course change to comfort only would be within her wishes and sons are aware of this and agreeable. If her status deteriorates further overnight at any time, comfort care will be pursued. (2) Pneumonia: Status: Acute Assessment and plan: Right basilar infiltrate. Interval worsening at left lung base. Cefepime and vancomycin initiated and to be continued. MRSA screen. IS and Acapella. However, pt is obtunded and not able to participate in use of IS and Acapella. (3) CHF (congestive heart failure): Assessment and plan: CXR did not indicate significant pulmonary edema. There is a possible left pleural effusion. She is on 20mg po lasix daily. Will give 40mg IV now and then daily. On BB. (4) Coronary artery disease without angina pectoris: Assessment and plan: She has not c/o chest pain. On ASA, BB. (5) Hypertension: Assessment and plan: Cont carvedilol, Irbesartan. Monitor. (6) Discharge planning issues: Status: Acute Assessment and plan: Since recent discharge, she has designated herself to be DNR/DNI per MOLST form. She is accepting of hospitalization for antibiotics, medications that might help but does not want escalation of care beyond this. She is agreeable to O2 per face mask but no BiPAP or other noninvasive pressure support. History of Present Illness History of Present Illness Chief Complaint: Shortness of breath Narrative: This is a 76 yo female with a PMH of PNA, HTN, first degree AV block, CHF, CAD, GERD, HLD, muscular dystrophy. She was recently hospitalized at [facility] from 09/20/22 until 09/23/22; treated for CHF and pneumonia. She was discharged on Moxifloxacin. On day of presentation, the staff at her facility noted shortness of breath that worsened throughout the day. Oxygen saturations in the mid 80's when EMS arrived. On facemask her O2 saturations were in the mid 90's. She does not recall a fever/chills. She was unable to provide any indepth ROS. VS showed a normal BP, afebrile. EKG w/o acute findings. CXR showed worsening left lower lobe consolidation and a new right lower lob infiltrate. WBC count elevated at 38.31. Creatinine 0.7. She recently signed a MOLST form and is DNR/DNI. She is accepting of antibiotics and medications but no escalation of care beyond that per MOLST form. Review of Systems All systems reviewed & are unremarkable except as noted in HPI and below PFSH All Active Problems (Updated 10/08/22 @ 18:59 by Donn Barboza MD) Discharge planning issues (Acute) Acute on chronic respiratory failure with hypoxia and hypercapnia (Acute) First degree AV block (Acute) Prolonged QT interval (Acute) Acute atelectasis (Acute) Hypoxia (Acute) Pneumonia (Acute) Chronic venous hypertension (Acute) First degree AV block (Chronic) Chronic pain (Chronic) Medical History CHF (congestive heart failure) Coronary artery disease without angina pectoris GERD (gastroesophageal reflux disease) Hyperlipidemia Hypertension Muscular dystrophy Social History Smoking/Tobacco Use Status: Never Smoking risk assessment performed?: Yes Alcohol Intake: former Drug use: Never Substance use type: does not use Do you feel safe at home: Yes Do you feel safe in your relationship?: Yes Meds Allergies and Home Medications Allergies Allergy/AdvReac Type Severity Reaction Status Date / Time atorvastatin [From Lipitor] Allergy Unverified 10/08/22 16:18 Penicillins Allergy Unverified 10/08/22 16:18 sean hips Allergy Unverified 10/08/22 16:18 gabapentin [From Neurontin] AdvReac Unverified 10/08/22 16:18 ibuprofen AdvReac Unverified 10/08/22 16:18 lovastatin AdvReac Unverified 10/08/22 16:18 metoclopramide [From Reglan] AdvReac Unverified 10/08/22 16:18 Home Medications Medication Instructions Recorded Confirmed Type acetaminophen 650 mg tablet 650 PO Q6H PRN PRN 09/19/22 History aspirin 81 mg chewable tablet 81 mg PO DAILY 09/19/22 10/08/22 History calcium carbonate 500 mg oral wafer 500 mg PO Q4-5H PRN 09/19/22 10/08/22 History carboxymethylcellulose sodium 1 drp ophthalmic (eye) BID PRN 09/19/22 10/08/22 History carvedilol 12.5 mg tablet 12.5 mg PO BID 09/19/22 10/08/22 History cyclobenzaprine 5 mg tablet 5 mg PO Q8H PRN PRN Muscle Spasm 09/19/22 10/08/22 History enoxaparin 40 mg/0.4 mL 40 mg subcut DAILY 09/19/22 10/08/22 History subcutaneous syringe fentanyl 12 mcg/hr transdermal 12 mcg topical Q OTHER DAY 09/19/22 10/08/22 History patch furosemide 20 mg tablet 20 mg PO DAILY 09/19/22 10/08/22 History ipratropium 0.5 mg-albuterol 3 mg 3 ml inhalation QID PRN 09/19/22 10/08/22 History (2.5 mg base)/3 mL nebulization soln irbesartan 150 mg tablet 150 mg PO DAILY 09/19/22 10/08/22 History lidocaine 5 % topical patch 1 patch topical DAILY 09/19/22 10/08/22 History magnesium hydroxide 400 mg/5 mL 30 ml PO DAILY PRN Constipation 09/19/22 10/08/22 History oral suspension meclizine 12.5 mg tablet 12.5 mg PO TID PRN 09/19/22 10/08/22 History polyethylene glycol 3350 17 17 g PO DAILY PRN PRN 09/19/22 10/08/22 History gram/dose oral powder (Miralax) ramelteon 8 mg tablet 8 mg PO QHS PRN 09/19/22 10/08/22 History triamcinolone acetonide 0.1 % 1 applic topical BID PRN 09/19/22 10/08/22 History topical cream guaifenesin 600 mg tablet, 600 mg PO BID #20 tabs 09/22/22 10/08/22 Rx extended release 12 hr acyclovir 5 % topical ointment 1 applic topical QID PRN 10/08/22 10/08/22 History carboxymethylcellulose sodium 1 % 1 drp ophthalmic (eye) BID PRN 10/08/22 10/08/22 History eye drops (Artificial Tears (carboxymethylcellulose)) morphine 15 mg tablet,extended 15 mg PO QHS 10/08/22 10/08/22 History release (MS Contin) moxifloxacin 400 mg tablet 400 mg PO QDAY 10/08/22 10/08/22 History ramelteon 8 mg tablet 8 mg PO QHS PRN 10/08/22 10/08/22 History Exam Narrative Exam Narrative: Const: Obese elderly female with O2 being delivered via facemask. Not responsive to verbal commands. Eyes: Normal conjunctiva and sclera. Neck: Supple. No JVD appreciated. Lungs: Labored breathing. Right lung with wet rhonchi throughout. Left lung markedly diminished especially in the lateral lower base. CV: RRR without murmur/gallop. GI: Soft. ND. No grimace with compression. Neuro: Obtunded. Has spontaneously moved all exts. Ext: No C/C. Edema present in all 4 extremities. Worse in bilateral lower extremities than upper. Skin: Warm and dry without rash. Results Labs 10/08/22 15:50 10/08/22 15:50 Labs: Laboratory Results - last 24 hr 10/08/22 10/08/22 10/08/22 15:50 15:50 16:40 WBC 38.31 H* RBC 5.19 Hgb 15.7 Hct 49.7 H MCV 96 H MCH 30.3 MCHC 31.6 L RDW 14.2 Plt Count 365 MPV 10.0 Immature Gran % 0.9 Neutrophils % 88.4 Lymphocytes % 6.0 Monocytes % 4.3 Eosinophils % 0.1 Basophils % 0.3 Nucleated RBC % 0.0 Absolute Neutrophils 33.87 H Absolute Lymphocytes 2.30 Absolute Monocytes 1.65 H Absolute Eosinophils 0.04 Absolute Basophils 0.11 Sodium 142 Potassium 3.4 L Chloride 99 Carbon Dioxide 40.7 H Anion Gap 2.3 L BUN 12 Creatinine 0.5 L Est GFR (CKD-EPI 2020) 96.54 Glucose 146 H Calcium 8.8 Magnesium 1.9 Total Bilirubin 0.6 AST 12 L ALT 14 Alkaline Phosphatase 121 H Troponin I < 50 Total Protein 7.5 Albumin 2.8 L COVID-19 Source Nasopharynx SARS-CoV-2 (PCR) Negative Influenza Type A (PCR) Negative Influenza Type B (PCR) Negative RSV (PCR) Negative Last Vital Signs Temp 36.5 C 10/08/22 15:34 Pulse 99 H 10/08/22 15:34 Resp 21 10/08/22 17:41 BP 162/82 H 10/08/22 17:48 Pulse Ox 89 L 10/08/22 17:48 Time Spent Time spent with Patient: 40-54 minutes Time was spent: preparing to see the patient(eg.review tests), obtaining and/or reviewing separately otained hiistory, ordering medications,tests, procedures, referring, communicating with other health career guidance counselor and indepentently interpreting results
[2022-10-08] MEDS: MORPHine 2 MG/ML SYR IVP ×2 (19:53→23:12)
[2022-10-08] MEDS: Normal Saline Flush 10 ML SYR IVP ×3 (19:54→23:48)
[2022-10-08] MEDS: Enoxaparin 40 MG/0.4 ML SYR SC (19:54)
[2022-10-08] MEDS: Furosemide 40 MG/4 ML VIAL IVP (19:54)
[2022-10-08] MEDS: Lidocaine Patch Removal 1 EACH TD (20:27)
[2022-10-08] MEDS: Normal Saline 500 ML 20 ML IV (23:48)
[2022-10-09 02:55] VITALS: BP 119/80; PULSE 89; RESP 24; TEMP 35.6; O2SAT 90
[2022-10-09] MEDS: MORPHine 2 MG/ML SYR IVP ×2 (03:48→06:55)
[2022-10-09] MEDS: Albuterol 2.5 MG/3 ML INH SOLN VIAL UPD (03:53)
--- NOTE | 2022-10-09 04:17 | NUR.NOTE ---
Addendum entered by Carmen Yang RN 10/09/22 05:52: This RN precepted DIRECTOR STAGE ES and agrees with notes and documentations Original Note: Pt arrived to unit on 10/08/22 @ 19:10. Pt arrived via stretcher with ASSOCIATE PROFESSOR OF GEOLOGY escort from ED. Pt arrived on NRB on 10L/min O2. Pt appeared pale and cyanotic, upon assessment SpO2 found to be 79%. ASSOCIATE PROFESSOR OF GEOLOGY stated Yeah, she got down to 45% in the elevator on the way up. Pt somnolent, unresponsive to verbal stimuli/gentle shaking. Pt noted to be agonally breathing with retraction/use of accessory muscles of abdomen. Pt HOB elevated, oxygen titrated up to 15L/min through NRB. Pt oxygen saturation recovered to 89%. Pt heart rate was regular, 96 bpm upon arrival. BP was 136/76. After recovery of oxygen saturation to 89-91%, patient able to sporadically answer assessment questions with one word answers. Pt expressed pain but could not describe where the pain was. Pt lung sounds were wet with crackles throughout. Lung sounds were diminished at the bases, more so on the left than the right. Pt became responsive to name, however, could not answer orientation questions beyond her first name. Pt pupils equal, reactive, and responsive to light with brisk constriction to 2mm. Pt able to squeeze this writers hands with BUE upon command, and move BLE upon command although weak/delayed in response. Nursing Note:
[2022-10-09 04:23] VITALS: RESP 2; RESP 7; RESP 8
--- NOTE | 2022-10-09 04:35 | NUR.NOTE ---
Addendum entered by Carmen Yang RN 10/09/22 05:51: This RN precepted CUSTOMER EXPERT ES and agrees with notes and documentations Original Note: Nursing Note: Upon assessment of VS @0400, pt found to have removed NRB and oxygen saturation was 80-81%. Mask reapplied without meaningful recovery of oxygen saturation. Saturations remained between 82-84% on 15L/min NRB. PRN IVP morphine administered by RN ELIZ and PRN UPD administered. Pt somnolent and unable to follow commands, only responsive to painful stimuli/sternal rub. Pt oxygen saturation recovered to 90% after 15 minutes. Lung sounds wet, with crackles throughout. Pt pupils PERRL, however, R eyelid appears to droop as well as R side of mouth. Neurological assessment completed, pt minimally responsive to verbal stimuli/commands. Pt eyes appear to track intermittently, however, pt blink response delayed/inconsistent. Pt unable to verbally respond to this marketing writer. Pt unable to squeeze this nurse's hands with BUE, however, pt observed removing blankets/moving BUE. Pt unable to move BLE to command. Clinical Coordinator notified, MD notified and to bedside. Pt oxygen saturation recovered to 93% on 15L/min NRB.
[2022-10-09] MEDS: VANCOMYCIN/WATER (PEG) 1.25 GM/250 ML BAG IVPB (05:52)
[2022-10-09 06:20] VITALS: BP 66/40; PULSE 89; RESP 26; TEMP 36.2; O2SAT 93
[2022-10-09 06:40] VITALS: BP 62/44
[2022-10-09 06:47] LABS: Abs Immature Grans 1.68 10^3/uL (0.0-0.06); HCT 47.4 % (36.0-46.0); HGB 14.4 g/dL (11.2-15.7); MCHC 30.4 % (32.0-36.0); MPV 11.1 fL (8.0-11.0); Platelet Count 352 10^3/uL (130-400); RBC 4.64 10^6/uL (3.93-5.22); RDW 14.6 % (11.7-14.6); RDW-SD 55.4 fL
[2022-10-09 06:49] LABS: Absolute Lymphocyte Count 2.04 10^3/uL (1.2-3.4); MCV 102 fL (80-95)
[2022-10-09 06:50] VITALS: BP 62/44
[2022-10-09 06:50] LABS: WBC 68.12 10^3/uL (4.4-10.8)
[2022-10-09 07:00] LABS: Absolute Monocyte Count 5.45 10^3/uL (0.1-0.8); Absolute Neutrophil Count 60.63 10^3/uL (1.2-6.7); Diff Comment Manual Differential; RBC Morphology Normal
[2022-10-09 07:09] LABS: Anion Gap -1.5 mmol/L (3-11); BUN 19 mg/dL (7-18); CO2 39.5 mmol/L (21.0-32.0); CREATININE 0.7 mg/dL (0.55-1.02); Calcium 8.3 mg/dL (8.5-10.1); Chloride 101 mmol/L (98-107); Estimated GFR 89.02 (mL/min/1.73m2); Glucose 140 mg/dL (74-106); Magnesium 2.1 mg/dL (1.8-2.4); Potassium 3.3 mmol/L (3.5-5.1); Sodium 139 mmol/L (136-145)
[2022-10-09] MEDS: MORPHine 4 MG/ML SYR IV/SC ×3 (09:04→15:03)
[2022-10-09] MEDS: Normal Saline Flush 10 ML SYR IVP ×3 (09:05→15:03)
[2022-10-09] MEDS: Scopolamine 1 MG/3 DAYS PATCH TD (09:05)
[2022-10-09] MEDS: LORazepam 2 MG/ML VIAL 0.5 MG IVP (10:31)
--- NOTE | 2022-10-09 11:56 | PGE_ITS ---
Date of Service Date of service: 10/09/22 Time of Service: 11:56 Assessment and Plan Assessment and plan (1) Acute on chronic respiratory failure with hypoxia and hypercapnia: Status: Acute Assessment and plan: Comfort care Breathing is steady and non labored RR 14 irregular, no apnea (2) Pneumonia: Status: Acute Assessment and plan: Right basilar infiltrate. Interval worsening at left lung base. Abx discontinued (3) CHF (congestive heart failure): Assessment and plan: CXR did not indicate significant pulmonary edema. There is a possible left pleural effusion. Comfort measures only (4) Coronary artery disease without angina pectoris: Assessment and plan: Comfort measures only, she does not appear to have any pain, no grimacing, pulse is steady (5) Hypertension: Assessment and plan: Comfort measures - not taking oral meds (6) Discharge planning issues: Status: Acute Assessment and plan: Since recent discharge, she has designated herself to be DNR/DNI per COLST form. Comfort measures Family at bedside and in agreement wiht plan Subjective Subjective Interval history since last seen: Unresponsive - family at bedside Exam Narrative Exam Narrative: Const: Obese elderly female with O2 being delivered via nasal cannula. Not responsive Eyes: Normal conjunctiva and sclera. Neck: Supple. No JVD appreciated. Lungs: Labored breathing. Right rhonchi throughout. Left lung diminished especially in the lateral lower base. CV: RRR without murmur/gallop. GI: Soft. ND. No grimace with compression. Neuro: Obtunded. Has spontaneously moved all exts. Ext: No C/C. Edema present in all 4 extremities. Worse in bilateral lower extremities than upper. Skin: Warm and dry without rash. Objective Last Vital Signs Temp 36.2 C L 10/09/22 06:20 Pulse 89 10/09/22 06:20 Resp 26 H 10/09/22 06:20 BP 62/44 L 10/09/22 06:50 Pulse Ox 93 10/09/22 06:20 Laboratory Results - last 24 hr 10/08/22 10/08/22 10/08/22 15:50 15:50 16:40 WBC 38.31 H* RBC 5.19 Hgb 15.7 Hct 49.7 H MCV 96 H MCH 30.3 MCHC 31.6 L RDW 14.2 Plt Count 365 MPV 10.0 Immature Gran % 0.9 Neutrophils % 88.4 Lymphocytes % 6.0 Monocytes % 4.3 Eosinophils % 0.1 Basophils % 0.3 Nucleated RBC % 0.0 Absolute Neutrophils 33.87 H Absolute Lymphocytes 2.30 Absolute Monocytes 1.65 H Absolute Eosinophils 0.04 Absolute Basophils 0.11 RBC Morphology Sodium 142 Potassium 3.4 L Chloride 99 Carbon Dioxide 40.7 H Anion Gap 2.3 L BUN 12 Creatinine 0.5 L Est GFR (CKD-EPI 2020) 96.54 Glucose 146 H Calcium 8.8 Magnesium 1.9 Total Bilirubin 0.6 AST 12 L ALT 14 Alkaline Phosphatase 121 H Troponin I < 50 Total Protein 7.5 Albumin 2.8 L COVID-19 Source Nasopharynx SARS-CoV-2 (PCR) Negative Influenza Type A (PCR) Negative Influenza Type B (PCR) Negative RSV (PCR) Negative 10/09/22 10/09/22 06:00 06:00 WBC 68.12 H* RBC 4.64 Hgb 14.4 Hct 47.4 H MCV 102 H D MCH 31.0 MCHC 30.4 L RDW 14.6 Plt Count 352 MPV 11.1 H Immature Gran % 0.0 Neutrophils % 89.0 Lymphocytes % 3.0 Monocytes % 8.0 Eosinophils % 0.0 Basophils % 0.0 Nucleated RBC % 0.0 Absolute Neutrophils 60.63 H Absolute Lymphocytes 2.04 Absolute Monocytes 5.45 H Absolute Eosinophils 0.00 Absolute Basophils 0.00 RBC Morphology Normal Sodium 139 Potassium 3.3 L Chloride 101 Carbon Dioxide 39.5 H Anion Gap -1.5 L BUN 19 H Creatinine 0.7 Est GFR (CKD-EPI 2020) 89.02 Glucose 140 H Calcium 8.3 L Magnesium 2.1 Total Bilirubin AST ALT Alkaline Phosphatase Troponin I Total Protein Albumin COVID-19 Source SARS-CoV-2 (PCR) Influenza Type A (PCR) Influenza Type B (PCR) RSV (PCR) Time Spent with Patient Time Spent with Patient: 25-34 minutes Time was spent: preparing to see the patient(eg.review tests), ordering medications,tests, procedures, referring, communicating with other health career development consultant, indepentently interpreting results, counseling the patient and care coordination
--- NOTE | 2022-10-09 17:11 | INITIAL_ITS ---
- If Service Date Differs Date of service: 10/09/22 Time of Service: 17:11 Care Management Initial Assess REASON FOR HOSPITALIZATION:: Pneumonia PAST MEDICAL HISTORY/PAST SURGICAL HISTORY:: All Active Problems. Discharge planning issues (Acute). Acute on chronic respiratory failure with hypoxia and hypercapnia (Acute). First degree AV block (Acute). Prolonged QT interval (Acute). Acute atelectasis (Acute). Hypoxia (Acute). Pneumonia (Acute). Tank Systems Maintainer naida venous hypertension (Acute). First degree AV block (Chronic). Chronic pain (Chronic). Medical History. CHF (congestive heart failure). Coronary artery disease without angina pectoris. GERD (gastroesophageal reflux disease). Hyperlipidemia. Hypertension. Muscular dystrophy PREVIOUS FUNCTIONAL STATUS/SOCIAL/FAMILY SUPPORTS:: Resides at [facility] and requires total assistance with ADLs per feller buncher operator. CURRENT FUNCTIONAL STATUS:: Brendon was resting comfortably when CM met with her. A son and two daughters were in the room visiting. Per report, Brendon transitioned to comfort measures today and will remain at [facility] for end of life care. Her certified art therapist was here earlier, visiting, and per her son he is supporting t he family with final arrangements. CM will continue to support Brendon and her family during this difficult time. ADVANCE DIRECTIVES:: None on file, per report, COLST form available at [facility]. Has patient been provided with info about the portal/API?: No Did the patient sign up for the portal?: No CODE STATUS:: DNR/DNI INSURANCE COVERAGE / FINANCIAL ISSUES:: [facility]/ [facility] CURRENT HOME/COMMUNITY SERVICES/EQUIPMENT:: All care provided by [facility] staff. PRIMARY CARE PHYSICIAN:: Facility provider POTENTIAL DISCHARGE NEEDS:: CM offered support for final arrangements; family stated that their certified art therapist is helping with this coordination. PATIENT/FAMILY EDUCATION NEEDS:: Review expectations for end of life care, support family and friends. PLAN:: Brendon will remain at [facility] for end of life care. Her family, friends and certified art therapist are visiting. Her certified art therapist is assisting with final arrangements. CM will continue to support Brendon and her family during this difficult time.
--- NOTE | 2022-10-09 17:11 | PDOC.CMIN ---
- If Service Date Differs Date of service: 10/09/22 Time of Service: 17:11 Care Management Initial Assess REASON FOR HOSPITALIZATION:: Pneumonia PAST MEDICAL HISTORY/PAST SURGICAL HISTORY:: All Active Problems. Discharge planning issues (Acute). Acute on chronic respiratory failure with hypoxia and hypercapnia (Acute). First degree AV block (Acute). Prolonged QT interval (Acute). Acute atelectasis (Acute). Hypoxia (Acute). Pneumonia (Acute). Chronic venous hypertension (Acute). First degree AV block (Chronic). Chronic pain (Chronic). Medical History. CHF (congestive heart failure). Coronary artery disease without angina pectoris. GERD (gastroesophageal reflux disease). Hyperlipidemia. Hypertension. Muscular dystrophy PREVIOUS FUNCTIONAL STATUS/SOCIAL/FAMILY SUPPORTS:: Resides at [facility] and requires total assistance with ADLs per garment form assembler. CURRENT FUNCTIONAL STATUS:: Brendon was resting comfortably when CM met with her. A son and two daughters were in the room visiting. Per report, Brendon transitioned to comfort measures today and will remain at [facility] for end of life care. Her powerhouse mechanic was here earlier, visiting, and per her son he is supporting the family with final arrangements. CM will continue to support Brendon and her family during this difficult time. ADVANCE DIRECTIVES:: None on file, per report, COLST form available at [facility]. Has patient been provided with info about the portal/API?: No Did the patient sign up for the portal?: No CODE STATUS:: DNR/DNI INSURANCE COVERAGE / FINANCIAL ISSUES:: [facility]/ [facility] CURRENT HOME/COMMUNITY SERVICES/EQUIPMENT:: All care provided by [facility] staff. PRIMARY CARE PHYSICIAN:: Facility provider POTENTIAL DISCHARGE NEEDS:: CM offered support for final arrangements; family stated that their powerhouse mechanic is helping with this coordination. PATIENT/FAMILY EDUCATION NEEDS:: Review expectations for end of life care, support family and friends. PLAN:: Brendon will remain at [facility] for end of life care. Her family, friends and powerhouse mechanic are visiting. Her powerhouse mechanic is assisting with final arrangements. CM will continue to support Brendon and her family during this difficult time.
--- NOTE | 2022-10-09 18:20 | NUR.NOTE ---
1808 Pt with no respirations, no heart rate. Provider at bedside. Sons at bedside. Clinical Coordinator called organ bank. Meredtih MCNULTY. Nursing Note:
--- NOTE | 2022-10-09 18:27 | EXPE_ITS ---
Date of service: 10/09/22 Time of Service: 18:10 Discharge Plan Disposition Patient Disposition: Condition: Poor Discharge Details Reason For Visit: Pneumonia Admit Date/Time: 10/08/22 16:32 Admit Provider: Donn Barboza Attending Provider: Donn Barboza Primary Care Provider: Unknown,Unknown Home Meds and New Rx's Prescriptions: No Action moxifloxacin 400 mg Tablet 400 mg PO QDAY acyclovir 5 % Ointment 1 applic TOPICAL QID PRN morphine [MS Contin] 15 mg Tablet Extended Release 15 mg PO QHS ramelteon 8 mg Tablet 8 mg PO QHS PRN Artificial Tears (cmc) 1 % Drops 1 drp ophthalmic (eye) BID PRN acetaminophen 650 mg Tablet 650 PO Q6H PRN PRN carboxymethylcellulose sodium Drops 1 drp ophthalmic (eye) BID PRN Rx Instructions: for dry eyes calcium carbonate 500 mg Wafer 500 mg PO Q4-5H PRN Rx Instructions: for indigestion carvedilol 12.5 mg Tablet 12.5 mg PO BID Rx Instructions: must administer with a meal/food cyclobenzaprine 5 mg Tablet 5 mg PO Q8H PRN PRN (Reason: Muscle Spasm) ipratropium-albuterol 0.5 mg-3 mg(2.5 mg base)/3 mL Solution For Nebulization 3 ml INHALATION QID PRN magnesium hydroxide 400 mg/5 mL Suspension 30 ml PO DAILY PRN (Reason: Constipation) lidocaine 5 % Adhesive Patch,Medicated 1 patch TOPICAL DAILY Rx Instructions: leave on most painful area for up to 12 hrs furosemide 20 mg Tablet 20 mg PO DAILY irbesartan 150 mg Tablet 150 mg PO DAILY enoxaparin 40 mg/0.4 mL Syringe 40 mg subcut DAILY fentanyl 12 mcg/hr Patch 72 Hour 12 mcg topical Q OTHER DAY meclizine 12.5 mg Tablet 12.5 mg PO TID PRN Rx Instructions: dizziness triamcinolone acetonide 0.1 % Cream 1 applic TOPICAL BID PRN Rx Instructions: eczema polyethylene glycol 3350 [Miralax] 17 gram/dose Powder 17 g PO DAILY PRN PRN Rx Instructions: constipation ramelteon 8 mg Tablet 8 mg PO QHS PRN Rx Instructions: insomnia aspirin 81 mg Tablet,Chewable 81 mg PO DAILY guaifenesin 600 mg tablet extended release 12hr 600 mg PO BID Qty: 20 0RF Discharge Data Cause of : Respiratory failure Discharge Sum: Prov Provider Primary care physician: Dr. Iniguez Admitting clinician: Donn Barboza Attending physician on admission: Donn Barboza Pronouncing clinician: Kelsey Barron Discharge Sum: Diag PCOD Cause of : Respiratory failure Contributing Factors (1) Acute on chronic respiratory failure with hypoxia and hypercapnia: (2) Pneumonia: (3) CHF (congestive heart failure): (4) Coronary artery disease without angina pectoris: (5) Hypertension: (6) Discharge planning issues: Discharge Sum: Summary Date and Time Admission Date: 10/09/2303/14/23 16:32 Date of : 10/09/22 Time of : 18:10 Summary Details: This is a 76 yo female with a PMH of PNA, HTN, first degree AV block, CHF, CAD, GERD, HLD, muscular dystrophy.? She was recently hospitalized at [facility] from 09/20/22 until 09/23/22; treated for CHF and pneumonia.? She was discharged on Mox ifloxacin on 09/23/2022.? On 10/08/2022, the staff at her facility noted shortness of breath that worsened throughout the day.? Oxygen saturations in the mid 80's when EMS arrived.? On facemask her O2 saturations were in the mid 90's.? She did not recall a fever/chills.? She was unable to provide any indepth ROS. VS showed a normal BP, afebrile. EKG w/o acute findings.? CXR showed worsening left lower lobe consolidation and a new right lower lob infiltrate.?WBC count elevated at 38.31.? Creatinine 0.7. She recently signed a COLST form and was DNR/DNI.? She decided she did not want antibiotics and wanted to be put on comfort care. She was put on comfort care. Her two sons were with her when she passed. Her [place] [facility] [place] unable to be here. He was notified by his sons. She was pronounced 1810h. Discussed with Dr Barboza Additional Data Confirmation of as documented by pronouncing clinician: no pulse, no respirations, no heart sounds and pupils fixed and dilated Family: at bedside Attending/PCP notified?: No Attending Physician: Doug Barboza MD, Donn Was code activated?: No Autopsy requested?: No elevator examiner notified?: No Organ bank notified?: Yes Advance directives: Yes Hospice patient?: No
== END 2022-10-09 21:02 | disposition expired | DRG 193 ==
LOC: ER 18:10 → MS 19:01
PROVIDERS: Admitting Provider Family Medicine; Emergency Provider Emergency Medicine; Visit Provider Family Medicine
DX: J18.9 Pneumonia, unspecified organism (principal); J96.21 Acute and chronic respiratory failure with hypoxia; J96.22 Acute and chronic respiratory failure with hypercapnia; Z68.41 Body mass index [BMI] 40.0-44.9, adult; Z51.5 Encounter for palliative care; I11.0 Hypertensive heart disease with heart failure; I50.9 Heart failure, unspecified; I25.10 Atherosclerotic heart disease of native coronary artery without angina pectoris; Z66 Do not resuscitate; I44.0 Atrioventricular block, first degree; R94.31 Abnormal electrocardiogram [ECG] [EKG]; I87.309 Chronic venous hypertension (idiopathic) without complications of unspecified lower extremity; E78.5 Hyperlipidemia, unspecified; G71.00 Muscular dystrophy, unspecified; G89.29 Other chronic pain; E66.9 Obesity, unspecified; K21.9 Gastro-esophageal reflux disease without esophagitis
CPT/HCPCS: 36415; 80048; 80053; 87081; 87637; 93005; 96365; 96366; 96368; 99285; J1650; 71045; 83735; 84484; 85025; 93010; 99222; 99232; J1940; J2060; J2270; J3490; J7613